=== PATIENT | male | born 1975 ===

== ENCOUNTER 2017-03-20 13:06 | Emergency (ER) | payer MEDICARE ==
[2017-03-20 13:06] VITALS: BMI 35.5
[2017-03-20 14:44] LABS: BASO # 0.1 K/uL (0.0-0.2); BASO % 0.8 % (0.0-2.0); EOS # 0.2 K/uL (0.0-0.7); EOS % 2.4 % (0.0-4.0); HEMOGLOBIN 10.8 g/dL (12.0-18.0); LYMPH # 1.5 K/uL (1.0-4.3); LYMPH % 17.7 % (20.0-40.0); MEAN CORPUSCULAR HEMOGLOBIN 27.5 pg (27.0-31.0); MEAN CORPUSCULAR HGB CONC 32.3 g/dL (33.0-37.0); MEAN PLATELET VOLUME 8.2 fL (7.2-11.7); MONO # 0.7 K/uL (0.0-0.8); MONO % 8.8 % (0.0-10.0); NEUT # 5.9 K/uL (1.8-7.0); NEUT % 70.3 % (50.0-75.0); RBC 3.93 Mil/uL (4.40-5.90); RED CELL DISTRIBUTION WIDTH 15.1 % (11.5-14.5); WHITE BLOOD COUNT 8.4 K/uL (4.8-10.8)
[2017-03-20 14:52] LABS: ALBUMIN 3.7 g/dL (3.5-5.0)
[2017-03-20 14:53] LABS: MEAN CELL VOLUME 84.9 fL (80.0-94.0)
[2017-03-20 14:55] LABS: ALT/SGPT 30 U/L (21-72); AST/SGOT 15 U/L (17-59); BLOOD UREA NITROGEN 27 mg/dL (9-20); GFR AFRICAN-AMERICAN > 60; GFR NON-AFRICAN AMERICAN 51
[2017-03-20 14:56] LABS: CALCIUM 9.3 mg/dl (8.6-10.4)
[2017-03-20 15:00] LABS: SALICYLATE < 1.0 mg/dL 1
[2017-03-20 15:02] LABS: ACETAMINOPHEN < 10.0 ug/mL (10.0-30.0)
[2017-03-20] MEDS ORDERED: Sodium Chloride 0.9% 1,000 ML IV ONE (15:12)
[2017-03-20 15:21] LABS: URINE BILIRUBIN NEGATIVE (NEGATIVE); URINE BLOOD NEGATIVE (NEGATIVE); URINE CLARITY Clear (Clear); URINE COLOR Yellow (YELLOW); URINE GLUCOSE (UA) NORMAL (Normal); URINE LEUKOCYTE ESTERASE NEG Leu/uL (Negative); URINE NITRATE NEGATIVE (NEGATIVE); URINE PROTEIN NEGATIVE (NEGATIVE); URINE UROBILINOGEN NORMAL mg/dL (0.2-1.0)
[2017-03-20] MEDS ORDERED: Sodium Chloride 0.9% 1,000 ML ONE (15:22)
[2017-03-20 15:25] LABS: BENZODIAZEPINES, UR NEGATIVE (NEGATIVE)
[2017-03-20 15:26] LABS: BARBITURATES, UR NEGATIVE (NEGATIVE)
[2017-03-20 15:29] LABS: OPIATES, UR NEGATIVE (NEGATIVE); PHENCYCLIDINE, UR NEGATIVE (NEGATIVE)
[2017-03-20 16:32] LABS: GFR AFRICAN-AMERICAN > 60; GFR NON-AFRICAN AMERICAN 55
[2017-03-20 16:33] LABS: BLOOD UREA NITROGEN 24 mg/dL (9-20); CALCIUM 8.9 mg/dl (8.6-10.4)
[2017-03-20] MEDS ORDERED: Sod Polystyrene Sulf 15 gm/60 ml Oral Susp PO ONE (16:55)
--- NOTE | 2017-03-20 16:55 | C.PDOC ---
History Of Present Illness Pt states he was thinking about cutting himself yesterday, but did not do it. Time Seen by Provider: 03/20/17 13:43 Chief Complaint (Nursing): Psychiatric Evaluation History Per: Patient Onset/Duration Of Symptoms: Days (1) Current Symptoms Are (Timing): Better Suicide/Self Injury Attempted (Context): None Modifying Factor(s): None Severity: Moderate Associated Symptoms: Depression Additional History Per: Prior Records Past Medical History Reviewed: Historical Data, Nursing Documentation, Vital Signs Vital Signs: Last Vital Signs Temp 97.9 F 03/20/17 16:57 Pulse 85 03/20/17 16:57 Resp 17 03/20/17 16:57 BP 138/76 03/20/17 16:57 Pulse Ox 99 03/20/17 16:59 - Medical History PMH: Anemia, Diabetes, HTN, Chronic Kidney Disease Other Surgeries: 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 SUBSTANCES (10/16/13) INFLUENZA VACCINATION (10/16/13) PHYSICAL THERAPY NEC (10/18/14) REPLACE GASTROSTOMY TUBE (09/16/14) VACCINATION NEC (10/16/13) Family History: States: Unknown Family Hx - Social History Hx Tobacco Use: No Hx Alcohol Use: No Hx Substance Use: No - Immunization History Hx Tetanus Toxoid Vaccination: No Hx Influenza Vaccination: No Hx Pneumococcal Vaccination: No Review Of Systems Except As Marked, All Systems Reviewed And Found Negative. Constitutional: Negative for: Fever, Weakness Cardiovascular: Negative for: Chest Pain Respiratory: Negative for: Shortness of Breath Gastrointestinal: Negative for: Vomiting, Abdominal Pain Musculoskeletal: Negative for: Neck Pain Skin: Negative for: Rash Neurological: Negative for: Weakness, Numbness, Seizures, Altered Mental Status Psych: Negative for: Psychosis Physical Exam - Physical Exam Appears: Non-toxic, No Acute Distress Skin: Normal Color, Warm, Dry Head: Atraumatic, Normacephalic Eye(s): bilateral: PERRL, EOMI Oral Mucosa: Moist Neck: Normal ROM, Supple Cardiovascular: Rhythm Regular Respiratory: Normal Breath Sounds, No Accessory Muscle Use Gastrointestinal/Abdominal: Soft, No Tenderness Extremity: Normal ROM Neurological/Psych: Oriented x3, Normal Motor, Normal Sensation ED Course And Treatment - Laboratory Results Result Diagrams: 03/20/17 14:38 08/03/17 16:14 Lab Interpretation: Abnormal Interpretation Of Abnormal: Mild hyperkalemia ECG: Interpreted By Me, Viewed By Me ECG Rhythm: Sinus Rhythm ECG Interpretation: No Acute Changes Rate From EC O2 Sat by Pulse Oximetry: 99 Pulse Ox Interpretation: Normal Progress Note: Pt was evaluated by the transit worker who d/w Dr. Del Cid. They psychiatrically cleared pt for discharge home. I wanted pt to stay for observation in order to treat his hyperkalemia, however he is refusing to stay any longer and wants to leave AMA even after explaining to him that a high potassium level is dangerous and can lead to . Reassessment Condition: Improved Against Medical Advice - AMA Patient Left Against Medical Advice: The patient declines admission to the hospital and wishes to leave the Emergency Department. This action is against my medical advice. This decision was made with informed refusal. The patient was told that admission to the hospital is necessary. Explanation of the reasons why were discussed. The risks of leaving were explained to the patient and include, but are not limited to, worsening of known or currently unknown conditions, permanent disability and from undiagnosed or untreated conditions. The patient has the capacity to make this informed decision and understands my explanation of the current medical problem and risks of leaving. The patient voluntarily accepts these risks and signed an AMA form documenting our conversation. The patient was given the opportunity to ask questions and reconsider. The patient was encouraged to return to the Emergency Department at any time for further care. Disposition Counseled Patient/Family Regarding: Studies Performed, Diagnosis, Need For Followup - Disposition Disposition: HOME/ ROUTINE Disposition Time: 17:04 Condition: FAIR Additional Instructions: Follow up with your doctor as soon as possible. Return to the ER if you change your mind or if you develop suicidal or homicidal thoughts, weakness, worsening of symptoms or if you have any other concerns. Instructions: Hyperkalemia (ED), Depression (ED), Against Medical Advice (ED) Forms: [employer] ([place]) - Clinical Impression Clinical Impression: Depression, Hyperkalemia, Left against medical advice
[2017-03-20 16:58] VITALS: BP 138/76; PULSE 85; RESP 17; TEMP 97.9
[2017-03-20 16:59] VITALS: O2SAT 99
[2017-03-20] MEDS ORDERED: Sod Polystyrene Sulf 15 gm/60 ml Oral Susp ONE (17:08)
--- NOTE | 2017-03-21 12:57 | CARD ---
APPROVED REPORT EKG Measurement Heart [id number] <Conclusion> Normal sinus rhythm Normal ECG
== END 2017-03-20 17:16 | disposition left against medical advice (07) ==
LOC: C.ER 13:06
DX: F32.9 Major depressive disorder, single episode, unspecified (principal); E87.5 Hyperkalemia
CPT/HCPCS: 36415; 80048; 80053; 81001; 85025; 93005; 96360; 99285; G0480; J7040

== ENCOUNTER 2018-04-17 07:09 | Emergency (ER) | payer MEDICARE ==
[2018-04-17 07:09] VITALS: BMI 35.5
[2018-04-17 09:01] LABS: BASO # 0.2 K/uL (0.0-0.2); BASO % 1.5 % (0.0-2.0); EOS # 0.2 K/uL (0.0-0.7); EOS % 2.1 % (0.0-4.0); HEMOGLOBIN 9.2 g/dL (12.0-18.0); LYMPH # 1.3 K/uL (1.0-4.3); LYMPH % 12.5 % (20.0-40.0); MEAN CORPUSCULAR HEMOGLOBIN 26.8 pg (27.0-31.0); MEAN CORPUSCULAR HGB CONC 32.7 g/dL (33.0-37.0); MEAN PLATELET VOLUME 7.5 fL (7.2-11.7); MONO # 1.1 K/uL (0.0-0.8); MONO % 10.2 % (0.0-10.0); NEUT # 7.7 K/uL (1.8-7.0); NEUT % 73.7 % (50.0-75.0); NRBC % 0.1 % (0.0-2.0); RBC 3.43 Mil/uL (4.40-5.90); WHITE BLOOD COUNT 10.4 K/uL (4.8-10.8)
[2018-04-17 09:05] LABS: MEAN CELL VOLUME 82.1 fL (80.0-94.0)
--- NOTE | 2018-04-17 09:14 | RAD ---
HISTORY: COMPARISON: 01/31/2016. TECHNIQUE: Chest PA and lateral FINDINGS: LINES AND TUBES: None. LUNG AND PLEURA: The lungs are well inflated and clear. No pleural effusion or pneumothorax. HEART AND MEDIASTINUM: The heart is not enlarged. The hilar and mediastinal contours are within normal limits. SKELETAL STRUCTURES: The bony structures are within normal limits for the patient's age. VISUALIZED UPPER ABDOMEN: Normal. OTHER FINDINGS: None. IMPRESSION: No active pulmonary disease.
[2018-04-17 09:21] LABS: ALBUMIN 4.4 g/dL (3.5-5.0); ALT/SGPT 39 U/L (21-72); AST/SGOT 29 U/L (17-59); BLOOD UREA NITROGEN 58 mg/dL (9-20); CALCIUM 10.7 mg/dl (8.6-10.4); GFR NON-AFRICAN AMERICAN 31; LIPASE 318 U/L (23-300)
[2018-04-17 09:58] VITALS: RESP 18
--- NOTE | 2018-04-17 10:01 | C.PDOC ---
History Of Present Illness 43-year-old nale, PMHx includes mouth cancer (s/p oral revision surgery 2011), presents to the emergency department with complaints of throat pain x2 days. Patient states he is unable to eat or drink anything, and also notes associated non-bloody/non-bilious vomiting. Patient denies fever, neck pain, dizziness, chest pain or any other associated symptoms. No other complaints at this time. Time Seen by Provider: 04/17/18 07:35 Chief Complaint (Nursing): ENT Problem History Per: Patient History/Exam Limitations: no limitations Onset/Duration Of Symptoms: Days Current Symptoms Are (Timing): Still Present Past Medical History Reviewed: Historical Data, Nursing Documentation, Vital Signs Vital Signs: Last Vital Signs Temp 98 F 04/17/18 13:12 Pulse 108 H 04/17/18 13:12 Resp 18 04/17/18 13:12 BP 150/90 04/17/18 13:12 Pulse Ox 100 04/17/18 13:12 - Medical History PMH: Anemia, Diabetes, HTN, Chronic Kidney Disease - [facility] Procedures ENTERAL INFUSION OF CONCENTRATED NUT. SUBSTANCES (10/16/13) INFLUENZA VACCINATION (10/16/13) PHYSICAL THERAPY NEC (10/18/14) REPLACE GASTROSTOMY TUBE (09/16/14) VACCINATION NEC (10/16/13) Family History: States: Unknown Family Hx - Social History Hx Tobacco Use: No Hx Alcohol Use: No Hx Substance Use: No - Immunization History Hx Tetanus Toxoid Vaccination: No Hx Influenza Vaccination: No Hx Pneumococcal Vaccination: No Review Of Systems Constitutional: Negative for: Fever, Chills ENT: Positive for: Throat Pain Cardiovascular: Negative for: Chest Pain, Palpitations Respiratory: Negative for: Shortness of Breath Gastrointestinal: Positive for: Vomiting. Negative for: Nausea, Abdominal Pain Physical Exam - Physical Exam Appears: Non-toxic, No Acute Distress Skin: Normal Color, Warm, Dry, No Rash Head: Atraumatic, Normacephalic Eye(s): bilateral: Normal Inspection Nose: Normal Oral Mucosa: Moist Lips: Other (s/p oral revision surgery, wound graft intact. oropharynxdry. Mouth :no gross abscess, poor dentition, raw appearing hard and soft palate.) Neck: Normal ROM Chest: Symmetrical Cardiovascular: Rhythm Regular, No Murmur Respiratory: Normal Breath Sounds, No Accessory Muscle Use Gastrointestinal/Abdominal: Soft, No Tenderness Extremity: Normal ROM, No Deformity Neurological/Psych: Oriented x3, Normal Speech ED Course And Treatment - Laboratory Results Result Diagrams: 04/17/18 08:58 04/17/18 08:58 ECG: Interpreted By Me, Viewed By Me ECG Rhythm: Sinus Bradycardia ECG Interpretation: No Acute Changes Rate From EC O2 Sat by Pulse Oximetry: 97 Pulse Ox Interpretation: Normal (RA) Against Medical Advice - AMA Patient Left Against Medical Advice: The patient declines admission to the hospital and wishes to leave the Emergency Department. This action is against my medical advice. This decision was made with informed refusal. The patient was told that admission to the hospital is necessary. Explanation of the reasons why were discussed. The risks of leaving were explained to the patient and include, but are not limited to, worsening of known or currently unknown conditions, permanent disability and from undiagnosed or untreated conditions. The patient has the capacity to make this informed decision and understands my explanation of the current medical problem and risks of leaving. The patient voluntarily accepts these risks and signed an AMA form documenting our conversation. The patient was given the opportunity to ask questions and reconsider. The patient was encouraged to return to the Emergency Department at any time for further care. Medical Decision Making Medical Decision Making: Plan: * CT neck * EKG * Bloodwork * Chest X-Ray * Morphine, Toradol * CT neck * Reassess and Disposition 1259 pm - patient has not informed me he does not wish to stay in hospital and will sign out ama 1700 - discussed with patient pmd and he aware patient will s/o ama and was seen today inED Disposition Counseled Patient/Family Regarding: Studies Performed, Diagnosis - Disposition Referrals: Konstantin Anderson MD [Staff Provider] - Disposition: AGAINST MEDICAL ADVICE Disposition Time: 12:50 Condition: STABLE Forms: [employer] (Kiswahili) - Clinical Impression Clinical Impression: Acute kidney injury, Tachycardia, Throat pain - Scribe Statement The provider has reviewed the documentation as recorded by the Rob Graham Provider Attestation: All medical record entries made by the Rob were at my direction and personally dictated by me. I have reviewed the chart and agree that the record accurately reflects my personal performance of the history, physical exam, medical decision making, and the department course for this patient. I have also personally directed, reviewed, and agree with the discharge instructions and disposition.
[2018-04-17] MEDS ORDERED: Morphine 4 MG/ML VIAL IV STA (10:26)
[2018-04-17 11:06] LABS: SQUAMOUS EPITHIAL < 1 /hpf (0-5); URINE BILIRUBIN NEGATIVE (NEGATIVE); URINE BLOOD 1+ (NEGATIVE); URINE CLARITY Clear (Clear); URINE COLOR Yellow (YELLOW); URINE GLUCOSE (UA) NORMAL (Normal); URINE LEUKOCYTE ESTERASE NEG Leu/uL (Negative); URINE PROTEIN 1+ mg/dL (NEGATIVE); URINE UROBILINOGEN NORMAL mg/dL (0.2-1.0)
--- NOTE | 2018-04-17 11:09 | RAD ---
Date of service: 04/17/2018 PROCEDURE: X-ray soft tissue neck HISTORY: pain COMPARISON: Not available TECHNIQUE: AP and lateral radiographs of the cervical soft tissues are obtained FINDINGS: The tracheal air column is roughly midline. There are numerous surgical clips in the left submandibular region. Patient is status post internal fixation for mandibular fracture. There is no radiopaque foreign body identified within the airway. The epiglottis is normal in width. There is no retropharyngeal soft tissue swelling. There is no evidence of tonsillar enlargement. IMPRESSION: Unremarkable.
[2018-04-17 13:30] VITALS: BP 150/90; PULSE 108; TEMP 98
[2018-04-17 18:09] VITALS: O2SAT 97
--- NOTE | 2018-04-21 22:31 | CARD ---
APPROVED REPORT Date of service: 04/17/2018 EKG Measurement Heart [id number] <Conclusion> Sinus tachycardia Moderate voltage criteria for LVH, may be normal variant Borderline ECG
== END 2018-04-17 13:20 | disposition left against medical advice (07) ==
LOC: C.ER 07:09 → C.9E 10:36 → UNDOADMIN 10:36 → C.5S 12:15 → C.9E 12:15 → C.ER 13:20
DX: N17.9 Acute kidney failure, unspecified (principal); R00.0 Tachycardia, unspecified; R07.0 Pain in throat
CPT/HCPCS: 70360; 71046; 80053; 81001; 83690; 84484; 85025; 87040; 87086; 93005; 96374; 96375; 99285; J1885; J2270

== ENCOUNTER 2018-08-20 14:03 | Outpatient (CLI) | payer MEDICARE | END 2018-08-20 14:04 | disposition home or self-care (01) | LOC: C.LAB 14:03 | DX: N40.0 Benign prostatic hyperplasia without lower urinary tract symptoms (principal) ==

== ENCOUNTER 2018-10-19 15:09 | Inpatient (IN) | payer MEDICARE, MEDICAID ==
[2018-10-19 15:10] VITALS: BMI 35.5
[2018-10-19] MEDS ORDERED: Sodium Chloride 0.9% 1,000 ML IV ONE ×2 (16:31→17:49)
[2018-10-19 16:46] LABS: BASO % 0.3 % (0.0-2.0); LYMPH # 1.2 K/uL (1.0-4.3); LYMPH % 6.4 % (20.0-40.0); MEAN CELL VOLUME 81.5 fL (80.0-94.0); MEAN CORPUSCULAR HGB CONC 30.7 g/dL (33.0-37.0); MEAN PLATELET VOLUME 9.2 fL (7.2-11.7); MONO # 1.5 K/uL (0.0-0.8); MONO % 8.3 % (0.0-10.0); NEUT # 15.4 K/uL (1.8-7.0); PLATELET COUNT 245 K/uL (130-400); RBC 3.77 Mil/uL (4.40-5.90); RED CELL DISTRIBUTION WIDTH 22.8 % (11.5-14.5); WHITE BLOOD COUNT 18.1 K/uL (4.8-10.8)
[2018-10-19 16:51] LABS: HEMOGLOBIN 9.4 g/dL (12.0-18.0)
[2018-10-19 17:01] LABS: ALB/GLOB RATIO 1.2 (1.0-2.1); ALBUMIN 4.6 g/dL (3.5-5.0); CALCIUM 9.9 mg/dl (8.6-10.4)
--- NOTE | 2018-10-19 17:39 | RAD ---
Date of service: 10/19/2018 PROCEDURE: Radiographs of the chest and abdomen (obstructive series) HISTORY: abd pain COMPARISON: Chest x-ray performed 04/17/18 TECHNIQUE: AP radiograph of the chest, with upright and supine radiographs of the abdomen. FINDINGS: Examination limited by habitus and hypoinflation. CHEST: Heart size appears within normal limits. Patchy right lower lobe airspace opacities suspicious for pneumonia. Please note that chest x-ray has limited sensitivity for the detection of pulmonary masses. ABDOMEN AND PELVIS: Nonspecific bowel gas pattern. No definite free air. Lumbar spine fusion hardware. Degenerative changes. IMPRESSION: Patchy right lower lobe airspace opacities suspicious for pneumonia. Moderate to severe constipation. Findings discussed with Dr. Jones on 10/19/18 at 5:34 p.m.
[2018-10-19 17:48] LABS: ANISOCYTOSIS MODERATE; BANDS 39 % (0-2); HYPOCHROMIC SLIGHT; LARGE PLATELETS PRESENT; LYMPHOCYTE 7 % (20-40); METAMYELOCYTE 3 % (0-0); MONOCYTE 9 % (0-10); NEUTROPHIL 42 % (50-75); OVALOCYTES SLIGHT; PLATELET ESTIMATE NORMAL (NORMAL); TOTAL CELLS COUNTED 100
[2018-10-19] MEDS ORDERED: Azithromycin 500 MG in Sodium Chloride 0.9% 250 ML IV STA (17:49)
[2018-10-19] MEDS ORDERED: cefTRIAXone IV 1 gm in Dextros 50 ML IV ONE (17:49)
[2018-10-19 18:02] LABS: SQUAMOUS EPITHIAL 1 /hpf (0-5); URINE BACTERIA RARE (<OCC); URINE BILIRUBIN 1+ (NEGATIVE); URINE BLOOD NEGATIVE (NEGATIVE); URINE CLARITY Hazy (Clear); URINE COLOR Amber (YELLOW); URINE GLUCOSE (UA) NORMAL (Normal); URINE LEUKOCYTE ESTERASE NEG Leu/uL (Negative); URINE PROTEIN 2+ mg/dL (NEGATIVE)
--- NOTE | 2018-10-19 18:20 | RAD ---
HISTORY: ? RLL PNA COMPARISON: Chest x-ray performed 04/17/18, obstructive series performed earlier the same day. TECHNIQUE: Chest PA and lateral FINDINGS: LUNGS: Patchy right lower lobe opacity suspicious for pneumonia. PLEURA: No significant pleural effusion identified. No definite pneumothorax . CARDIOVASCULAR: Heart size appears top normal. OSSEOUS STRUCTURES: Degenerative changes. VISUALIZED UPPER ABDOMEN: Unremarkable. OTHER FINDINGS: None. IMPRESSION: Patchy right lower lobe airspace opacities suspicious for pneumonia.
[2018-10-19 18:31] LABS: VENOUS BLOOD GAS BASE EXCESS -9.9 mmol/L (0.0-2.0); VENOUS BLOOD GAS PCO2 48 mmHg (40-60); VENOUS BLOOD GAS PO2 24 mm/Hg (30-55); VENOUS BLOOD PH 7.19 (7.32-7.43)
--- NOTE | 2018-10-19 18:46 | C.PDOC ---
History Of Present Illness 43 y/o male presents to the ED, referred by Dr. Contreras for evaluation of epigastric pain. Pain is described as colicky in nature. He also complains of chronic constipation. Patient states he cannot eat food due to hx of left oral cancer with surgical resection and reconstruction. He drinks protein drinks for nutrition. Otherwise he denies any vomiting, diarrhea, dark or bloody stool, or changes in urination. Time Seen by Provider: 10/19/18 16:06 Chief Complaint (Nursing): Abdominal Pain History Per: Patient History/Exam Limitations: no limitations Onset/Duration Of Symptoms: Hrs Current Symptoms Are (Timing): Still Present Location Of Pain/Discomfort: Epigastric Quality Of Discomfort: Cramping Past Medical History Reviewed: Historical Data, Nursing Documentation, Vital Signs Vital Signs: Last Vital Signs Temp 99 F 10/19/18 15:19 Pulse 122 H 10/19/18 15:19 Resp 18 10/19/18 15:19 BP 101/68 10/19/18 15:19 Pulse Ox 95 10/19/18 15:19 - Medical History PMH: Anemia, Diabetes, HTN, Hypercholesterolemia Denies: Chronic Kidney Disease - [facility] Procedures ENTERAL INFUSION OF CONCENTRATED NUT. SUBSTANCES (10/16/13) INFLUENZA VACCINATION (10/16/13) PHYSICAL THERAPY NEC (10/18/14) REPLACE GASTROSTOMY TUBE (09/16/14) VACCINATION NEC (10/16/13) Family History: States: Unknown Family Hx - Social History Hx Tobacco Use: No Hx Alcohol Use: No Hx Substance Use: No - Immunization History Hx Tetanus Toxoid Vaccination: No Hx Influenza Vaccination: No Hx Pneumococcal Vaccination: No Review Of Systems Except As Marked, All Systems Reviewed And Found Negative. Constitutional: Negative for: Fever, Chills Cardiovascular: Negative for: Chest Pain Respiratory: Negative for: Shortness of Breath Gastrointestinal: Positive for: Abdominal Pain, Constipation. Negative for: Diarrhea, Melena, Hematochezia Genitourinary: Negative for: Dysuria, Hematuria Neurological: Negative for: Weakness, Dizziness Physical Exam - Physical Exam Appears: Non-toxic, No Acute Distress Skin: Warm, Dry Head: Atraumatic, Other (Scars and reconstruction of left lower face) Eye(s): bilateral: Normal Inspection, PERRL, EOMI Oral Mucosa: Moist Neck: Normal ROM, Supple Chest: Symmetrical Cardiovascular: Rhythm Regular, No Murmur Respiratory: No Accessory Muscle Use, No Stridor, Wheezing (Mild wheezing on the right) Gastrointestinal/Abdominal: Bowel Sounds (Tympanic in epigastrium, dull to B/L sides), No Tenderness, Distention (abdomen slightly distended), Other (obese abdomen) Back: No CVA Tenderness, No Vertebral Tenderness Extremity: Bilateral: Atraumatic, Normal Color And Temperature, Normal ROM Neurological/Psych: Oriented x3, Normal Speech ED Course And Treatment - Laboratory Results Result Diagrams: 10/19/18 16:41 10/19/18 16:41 Lab Results: pO2 24 mm/Hg (30-55) L 10/19/18 18:26 VBG pH 7.19 (7.32-7.43) L* 10/19/18 18:26 VBG pCO2 48 mmHg (40-60) 10/19/18 18:26 VBG HCO3 15.3 mmol/L 10/19/18 18:26 VBG Total CO2 19.8 mmol/L (22-28) L 10/19/18 18:26 VBG O2 Sat (Calc) 44.5 % (40-65) 10/19/18 18:26 VBG Base Excess -9.9 mmol/L (0.0-2.0) L 10/19/18 18:26 VBG Potassium 5.5 mmol/L (3.6-5.2) H 10/19/18 18:26 Sodium 140.0 mmol/l (132-148) 10/19/18 18:26 Chloride 114.0 mmol/L (98-107) H 10/19/18 18:26 Glucose 117 mg/dl (75-110) H 10/19/18 18:26 Lactate 1.9 mmol/L (0.7-2.1) 10/19/18 18:26 Crit Value Called To Sathish enciso md 10/19/18 18:26 Crit Value Called By Sathish parmar stone gluer 10/19/18 18:26 Crit Value Read Back Y 10/19/18 18:26 Blood Gas Notified Time 18310/19/18 18:26 Total Bilirubin 0.4 mg/dL (0.2-1.3) 10/19/18 16:41 AST 56 U/L (17-59) 10/19/18 16:41 ALT 23 U/L (21-72) 10/19/18 16:41 Alkaline Phosphatase 40 U/L (38-126) 10/19/18 16:41 Total Protein 8.5 g/dL (6.3-8.3) H 10/19/18 16:41 Albumin 4.6 g/dL (3.5-5.0) 10/19/18 16:41 Globulin 3.8 gm/dL (2.2-3.9) 10/19/18 16:41 Albumin/Globulin Ratio 1.2 (1.0-2.1) 10/19/18 16:41 Lipase 241 U/L (23-300) 10/19/18 16:41 Urine Color Elen (YELLOW) 10/19/18 17:47 Urine Clarity Hazy (Clear) 10/19/18 17:47 Urine pH 5.0 (5.0-8.0) 10/19/18 17:47 Ur Specific [place] 1.026 (1.003-1.030) 10/19/18 17:47 Urine Protein 2+ mg/dL (NEGATIVE) H 10/19/18 17:47 Urine Glucose (UA) Normal mg/dL (Normal) 10/19/18 17:47 Urine Ketones Trace mg/dL (NEGATIVE) 10/19/18 17:47 Urine Blood Negative (NEGATIVE) 10/19/18 17:47 Urine Nitrate Negative (NEGATIVE) 10/19/18 17:47 Urine Bilirubin 1+ (NEGATIVE) H 10/19/18 17:47 Urine Urobilinogen 2.0 mg/dL (0.2-1.0) 10/19/18 17:47 Ur Leukocyte Esterase Neg Zach/uL (Negative) 10/19/18 17:47 Urine WBC (Auto) 2 /hpf (0-5) 10/19/18 17:47 Urine RBC (Auto) 10 /hpf (0-3) H 10/19/18 17:47 Ur Squamous Epith Cells 1 /hpf (0-5) 10/19/18 17:47 Urine Bacteria Rare (<OCC) 10/19/18 17:47 Lab Interpretation: Abnormal (++ bandemia, flu neg, creat 4.9 H) O2 Sat by Pulse Oximetry: 95 (RA) Pulse Ox Interpretation: Normal - Radiology CXR: Interpreted by Me CXR Interpretation: Yes: Infiltrates (+RLL) - CT Scan/US CT A/P Other Rad Studies (CT/US): Read By Radiologist, Radiology Report Reviewed CT/US Interpretation: Impression: Dense areas of consolidation at the right lower lung. No mass lymphadenopathy or free fluid within the abdomen and pelvis. Postsurgical changes lumbosacral junction with orthopedic fixation device is present at this region. Clinical correlation advised. Reevaluation Time: 19:08 Reassessment Condition: Improved - Physician Consult Information Outcome Of Conversation: 1900: d/w Dr. Anderson- admits for Dr. Contreras- ok to admit Medical Decision Making Medical Decision Making: Impression: Abdominal pain, Constipation Plan: - Labs - Obstructive series x-ray - IV fluids - 30 mg IV Toradol - Reassess Imaging and labs reviewed. WBC elevated at 18k, with 39 bands. Added on VBG, CXR, and CT Abdomen/Pelvis. epigastric pain ? related to large bowel gas/contipation incidental RLL PNA rocephin/azithro acute on chronic renal insuff creat 4.9 H ? pre-renal- dry rehydrate and follow cmp renal consult PRN Disposition Doctor Will See Patient In The: Hospital Counseled Patient/Family Regarding: Studies Performed, Diagnosis - Disposition Disposition: HOSPITALIZED Disposition Time: 19:09 Condition: GOOD Forms: [facility] ([employer]) - Clinical Impression Clinical Impression: Abdominal colic, Cough, Acute renal insufficiency - Scribe Statement The provider has reviewed the documentation as recorded by the Rob Delacruz Provider Attestation: All medical record entries made by the Rob were at my direction and personally dictated by me. I have reviewed the chart and agree that the record accurately reflects my personal performance of the history, physical exam, medical decision making, and the department course for this patient. I have also personally directed, reviewed, and agree with the discharge instructions and disposition.
[2018-10-19] MEDS ORDERED: Albuterol-Ipratrop 3 mg / 0.5 (3 ml) UD INH STA (19:10)
[2018-10-19] MEDS ORDERED: Albuterol-Ipratrop 3 mg / 0.5 (3 ml) UD ONE (19:25)
[2018-10-19] MEDS ORDERED: Azithromycin 500mg/250ML NS 500 MG/250 ML BAG IVPB ONE (19:27)
--- NOTE | 2018-10-19 22:08 | CP.PCM.HP ---
Past Patient History - Infectious Disease Hx of Infectious Diseases: None - Past Medical History & Family History Past Medical History?: Yes - Past Social History Smoking Status: Never Smoked - CARDIAC Hx Hypercholesterolemia: Yes Hx Hypertension: Yes - PULMONARY Hx Respiratory Disorders: No - NEUROLOGICAL Hx Neurological Disorder: No - HEENT Hx HEENT Problems: No - RENAL Hx Chronic Kidney Disease: No - ENDOCRINE/METABOLIC Hx Endocrine Disorders: Yes Hx Diabetes Mellitus Type 2: Yes - HEMATOLOGICAL/ONCOLOGICAL Hx Anemia: Yes - INTEGUMENTARY Hx Dermatological Problems: Yes Other/Comment: left leg scar from the grafting to face - MUSCULOSKELETAL/RHEUMATOLOGICAL Hx Musculoskeletal Disorders: No Hx Falls: Yes - GASTROINTESTINAL Hx Gastrointestinal Disorders: Yes Hx Constipation: Yes HX Swallowing Problems: Yes Other/Comment: MOUTH CANCER - GENITOURINARY/GYNECOLOGICAL Hx Genitourinary Disorders: No - PSYCHIATRIC Hx Substance Use: No - SURGICAL HISTORY Hx Surgeries: Yes Other/Comment: skin grafting of the left side of the mouth November - ANESTHESIA Hx Anesthesia: Yes Hx Anesthesia Reactions: No Meds Allergies/Adverse Reactions: Allergies Allergy/AdvReac Type Severity Reaction Status Date / Time No Known Allergies Allergy Verified 10/19/18 15:22 Results - Vital Signs Recent Vital Signs: Last Vital Signs Temp 97.8 F 10/19/18 20:30 Pulse 117 H 10/19/18 20:30 Resp 22 10/19/18 20:30 BP 127/78 10/19/18 20:30 Pulse Ox 99 10/19/18 20:30 - Labs Result Diagrams: 10/19/18 16:41 10/19/18 16:41 Labs: Laboratory Results - last 24 hr 10/19/18 10/19/18 10/19/18 16:41 16:41 17:47 WBC 18.1 H D RBC 3.77 L Hgb 9.4 L Hct 30.8 L MCV 81.5 MCH 25.0 L MCHC 30.7 L RDW 22.8 H Plt Count 245 D MPV 9.2 Neut % (Auto) 85.0 H Lymph % (Auto) 6.4 L [place] % (Auto) 8.3 Eos % (Auto) 0.0 Baso % (Auto) 0.3 Neut # (Auto) 15.4 H Lymph # (Auto) 1.2 [place] # (Auto) 1.5 H Eos # (Auto) 0.0 Baso # (Auto) 0.0 Neutrophils % (Manual) 42 L Band Neutrophils % 39 H* Lymphocytes % (Manual) 7 L Monocytes % (Manual) 9 Metamyelocytes % 3 H Platelet Estimate Normal Large Platelets Present Hypochromasia (manual) Slight Anisocytosis (manual) Moderate Ovalocytes Slight pO2 VBG pH VBG pCO2 VBG HCO3 VBG Total CO2 VBG O2 Sat (Calc) VBG Base Excess VBG Potassium Glucose Lactate Crit Value Called To Crit Value Called By Crit Value Read Back Blood Gas Notified Time Sodium 140 Potassium 5.6 H Chloride 113 H Carbon Dioxide 16 L Anion Gap 17 BUN 48 H Creatinine 4.9 H Est GFR ( Amer) 16 Est GFR (Non-Af Amer) 13 POC Glucose (mg/dL) Random Glucose 116 H Calcium 9.9 Total Bilirubin 0.4 AST 56 ALT 23 Alkaline Phosphatase 40 Total Protein 8.5 H Albumin 4.6 Globulin 3.8 Albumin/Globulin Ratio 1.2 Lipase 241 Venous Blood Potassium Urine Color Elen Urine Clarity Hazy Urine pH 5.0 Ur Specific [place] 1.026 Urine Protein 2+ H Urine Glucose (UA) Normal Urine Ketones Trace Urine Blood Negative Urine Nitrate Negative Urine Bilirubin 1+ H Urine Urobilinogen 2.0 Ur Leukocyte Esterase Neg Urine WBC (Auto) 2 Urine RBC (Auto) 10 H Ur Squamous Epith Cells 1 Urine Bacteria Rare Influenza Typ A,B (EIA) 10/19/18 10/19/18 10/19/18 18:26 18:29 21:07 WBC RBC Hgb Hct MCV MCH MCHC RDW Plt Count MPV Neut % (Auto) Lymph % (Auto) [place] % (Auto) Eos % (Auto) Baso % (Auto) Neut # (Auto) Lymph # (Auto) [place] # (Auto) Eos # (Auto) Baso # (Auto) Neutrophils % (Manual) Band Neutrophils % Lymphocytes % (Manual) Monocytes % (Manual) Metamyelocytes % Platelet Estimate Large Platelets Hypochromasia (manual) Anisocytosis (manual) Ovalocytes pO2 24 L VBG pH 7.19 L* VBG pCO2 48 VBG HCO3 15.3 VBG Total CO2 19.8 L VBG O2 Sat (Calc) 44.5 VBG Base Excess -9.9 L VBG Potassium 5.5 H Glucose 117 H Lactate 1.9 Crit Value Called To Sathish enciso md Crit Value Called By Sathish parmar supervisor machine setter Crit Value Read Back Y Blood Gas Notified Time 1832 Sodium 140.0 Potassium Chloride 114.0 H Carbon Dioxide Anion Gap BUN Creatinine Est GFR ( Amer) Est GFR (Non-Af Amer) POC Glucose (mg/dL) 213 H Random Glucose Calcium Total Bilirubin AST ALT Alkaline Phosphatase Total Protein Albumin Globulin Albumin/Globulin Ratio Lipase Venous Blood Potassium 5.5 H Urine Color Urine Clarity Urine pH Ur Specific [place] Urine Protein Urine Glucose (UA) Urine Ketones Urine Blood Urine Nitrate Urine Bilirubin Urine Urobilinogen Ur Leukocyte Esterase Urine WBC (Auto) Urine RBC (Auto) Ur Squamous Epith Cells Urine Bacteria Influenza Typ A,B (EIA) Negative for flu a/b
[2018-10-19] MEDS: (Novolog) Insulin Aspart, Recombinant 100 u/ml 10 ml vial SC SCH (22:49)
[2018-10-20 00:25] VITALS: RESP 20
[2018-10-20] MEDS: Albuterol-Ipratrop 3 mg / 0.5 (3 ml) UD INH SCH ×4 (03:21→19:40)
[2018-10-20] MEDS: Pantoprazole 40 mg Susp UD PO SCH (05:34)
[2018-10-20] MEDS ORDERED: COLESEVELAM HCL 3.75 GM PO SCH (10:00)
[2018-10-20] MEDS ORDERED: CHLORZOXAZONE 750 MG PO SCH (10:00)
[2018-10-20] MEDS ORDERED: Cholestyramine 4 gm/Pkt UD PO SCH (10:00)
[2018-10-20] MEDS ORDERED: Enoxaparin 40 mg Syringe SC SCH (10:00)
[2018-10-20] MEDS: (Novolog) Insulin Aspart, Recombinant 100 u/ml 10 ml vial SC SCH ×4 (10:13→22:08)
[2018-10-20] MEDS: Sodium Chloride 0.9% 1,000 ML IV SCH ×3 (10:24→22:23)
--- NOTE | 2018-10-20 11:13 | CT ---
Date of service: 10/19/2018 PROCEDURE: CT Abdomen and Pelvis without intravenous contrast HISTORY: epigastric colic, leukocytosis, h/o mouth CA COMPARISON: 06/26/2016 TECHNIQUE: Without contrast.. Contrast dose: 0 Radiation dose: Total exam DLP = 1258.62 mGy-cm. This CT exam was performed using one or more of the following dose reduction techniques: Automated exposure control, adjustment of the mA and/or kV according to patient size, and/or use of iterative reconstruction technique. FINDINGS: LOWER THORAX: Lars consolidation right lower lobe and right middle lobe. Innumerable ill-defined nodules in right lower lobe and in left lower lobe. Findings suspicious for multifocal pneumonia. Less likely neoplastic. No pleural effusion. LIVER: Unremarkable. No gross lesion or ductal dilatation. GALLBLADDER AND BILE DUCTS: Unremarkable. PANCREAS: Unremarkable. No gross lesion or ductal dilatation. SPLEEN: Unremarkable. ADRENALS: Unremarkable. No mass. KIDNEYS AND URETERS: Unremarkable. No hydronephrosis. No solid mass. VASCULATURE: Unremarkable. No aortic aneurysm. No aortic atherosclerotic calcification or mural plaque present. BOWEL: Unremarkable. No obstruction. No gross mural thickening. APPENDIX: Not identified. No secondary findings to suggest acute appendicitis. PERITONEUM: Unremarkable. No free fluid. No free air. LYMPH NODES: Unremarkable. No enlarged lymph nodes. BLADDER: Nondistended REPRODUCTIVE: Normal prostate BONES: No acute fracture. Status post posterior fixation at L5-S1. OTHER FINDINGS: None. IMPRESSION: Probable bilateral multi lobar pneumonia, right greater than left. Less likely neoplastic. No significant intra-abdominal abnormality. The preliminary findings for this examination were reported by [facility] at 6:43 p.m. on 10/19/2018. There is concurrence of this report with the preliminary findings.
[2018-10-20 11:24] LABS: BASO % 0.1 % (0.0-2.0); EOS % 0.1 % (0.0-4.0); HEMOGLOBIN 8.2 g/dL (12.0-18.0); LYMPH # 1.3 K/uL (1.0-4.3); LYMPH % 5.4 % (20.0-40.0); MEAN CELL VOLUME 81.5 fL (80.0-94.0); MEAN CORPUSCULAR HEMOGLOBIN 25.2 pg (27.0-31.0); MEAN CORPUSCULAR HGB CONC 30.9 g/dL (33.0-37.0); MEAN PLATELET VOLUME 9.1 fL (7.2-11.7); MONO # 1.8 K/uL (0.0-0.8); MONO % 7.3 % (0.0-10.0); NEUT # 21.4 K/uL (1.8-7.0); NEUT % 87.1 % (50.0-75.0); PLATELET COUNT 232 K/uL (130-400); RBC 3.24 Mil/uL (4.40-5.90); RED CELL DISTRIBUTION WIDTH 23.6 % (11.5-14.5); WHITE BLOOD COUNT 24.6 K/uL (4.8-10.8)
[2018-10-20 11:38] LABS: CALCIUM 8.8 mg/dl (8.6-10.4)
[2018-10-20 12:33] LABS: ANISOCYTOSIS MODERATE; BANDS 40 % (0-2); LYMPHOCYTE 4 % (20-40); METAMYELOCYTE 3 % (0-0); MONOCYTE 7 % (0-10); NEUTROPHIL 46 % (50-75); PLATELET ESTIMATE NORMAL (NORMAL); TOTAL CELLS COUNTED 100
[2018-10-20 12:35] LABS: HYPOCHROMIC SLIGHT; LARGE PLATELETS PRESENT; TOXIC GRANULATION PRESENT
--- NOTE | 2018-10-20 14:49 | CP.PCM.CON ---
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 States that he went to bed on Friday evening with slight RUQ abdominal pain and awoke Friday morning with significant RUQ and epigastric cramping/stabbing pain. He did not take any medication to alleviate symptoms and presented to the ED as pain persists. In the ED, patient had blood work revealing leukocytosis, LORI and a CT abdomen/pelvis showed multifocal pneumonia. Presently, the patient states pain has improved. At home, the patient has not been able to tolerate anything but pureed food and shakes due to his prior oral surgery. Admits that he eats 3 meals daily and believes he is getting adequate nutrition. Denies any nausea, vomiting, dysphagia, odynphagia. Does note weight loss in the last 3 months despite usual intake. Admits to constipation. No rectal bleeding noted. 12 system ROS performed and negative except where stated PMHx: See HPI PSHx: PEG, oral cancer surgery requiring glossectomy/resection of jaw, tracheostomy FHx: Mother - Diabetes Social: Denies tobacco, EtOH or illicit drug use Endo: No prior endoscopic evaluations Past Patient History - Infectious Disease Hx of Infectious Diseases: None - Past Medical History & Family History Past Medical History?: Yes - Past Social History Smoking Status: Never Smoked - CARDIAC Hx Hypercholesterolemia: Yes Hx Hypertension: Yes - PULMONARY Hx Respiratory Disorders: No - NEUROLOGICAL Hx Neurological Disorder: No - HEENT Hx HEENT Problems: No - RENAL Hx Chronic Kidney Disease: No - ENDOCRINE/METABOLIC Hx Endocrine Disorders: Yes Hx Diabetes Mellitus Type 2: Yes - HEMATOLOGICAL/ONCOLOGICAL Hx Anemia: Yes - INTEGUMENTARY Hx Dermatological Problems: Yes Other/Comment: left leg scar from the grafting to face - MUSCULOSKELETAL/RHEUMATOLOGICAL Hx Musculoskeletal Disorders: No Hx Falls: Yes - GASTROINTESTINAL Hx Gastrointestinal Disorders: Yes Hx Constipation: Yes HX Swallowing Problems: Yes Other/Comment: MOUTH CANCER - GENITOURINARY/GYNECOLOGICAL Hx Genitourinary Disorders: No - PSYCHIATRIC Hx Substance Use: No - SURGICAL HISTORY Hx Surgeries: Yes Other/Comment: skin grafting of the left side of the mouth November - ANESTHESIA Hx Anesthesia: Yes Hx Anesthesia Reactions: No Meds Allergies/Adverse Reactions: Allergies Allergy/AdvReac Type Severity Reaction Status Date / Time No Known Allergies Allergy Verified 10/19/18 15:22 - Medications Medications: Current Medications Albuterol/Ipratropium (Duoneb 3 Mg/0.5 Mg (3 Ml) Ud) 3 ml INH RQ6 [facility] Last Admin: 10/20/18 07:30 Dose: 3 ml Amitriptyline HCl (Elavil) 50 mg PO DAILY [facility] Last Admin: 10/20/18 10:11 Dose: 50 mg Cholestyramine Resin (Questran) 4 gm PO DAILY [facility] Last Admin: 10/20/18 10:20 Dose: 4 gm Enoxaparin Sodium (Lovenox) 40 mg SC DAILY [facility] Last Admin: 10/20/18 10:12 Dose: 40 mg Fenofibrate (Tricor) 48 mg PO DAILY [facility] Last Admin: 10/20/18 10:11 Dose: 48 mg Ferrous Sulfate (Feosol) 325 mg PO DAILY [facility] Last Admin: 10/20/18 10:11 Dose: 325 mg Gabapentin (Neurontin) 800 mg PO DAILY [facility] Last Admin: 10/20/18 10:11 Dose: 800 mg Glimepiride (Amaryl) 2 mg PO DAILY [facility] Last Admin: 10/20/18 10:11 Dose: 2 mg Home Med (Carbinoxamine Maleate [Ryvent]) 6 mg PO DAILY [facility] Ceftriaxone Sodium (Rocephin Iv 1 Gm Duplex) 50 mls @ 100 mls/hr IVPB Q24H [facility]; Protocol Azithromycin 500 mg/ Sodium (Chloride) 250 mls @ 250 mls/hr IVPB Q24H [facility]; Prot ocol Sodium Chloride (Sodium Chloride 0.9%) 1,000 mls @ 100 mls/hr IV .Q10H [facility] Last Admin: 10/20/18 10:24 Dose: 100 mls/hr Influenza Virus Vaccine (Flucelvax Quad [id number] Syr) 60 mcg IM .ONCE ONE Stop: 10/21/18 10:01 Insulin Aspart (Novolog) 0 unit SC [facility]; Protocol Last Admin: 10/20/18 12:11 Dose: 1 unit Losartan Potassium (Cozaar) 50 mg PO DAILY [facility] Last Admin: 10/20/18 10:11 Dose: 50 mg Pantoprazole Sodium (Protonix Susp) 40 mg PO 0600 [facility] Last Admin: 10/20/18 05:34 Dose: 40 mg Pneumococcal Polyvalent Vaccine (Pneumovax 23 Vaccine) 0.5 ml IM .ONCE ONE Stop: 10/21/18 10:01 Rosuvastatin Calcium (Crestor) 5 mg PO HS [facility] Last Admin: 10/19/18 22:48 Dose: Not Given Sitagliptin Phosphate (Januvia) 50 mg PO DAILY [facility] Last Admin: 10/20/18 10:11 Dose: 50 mg Physical Exam - Constitutional Appears: Non-toxic, No Acute Distress Additional comments: s/p surgical resection of jaw (left), tongue - Eye Exam Eye Exam: EOMI, PERRL - ENT Exam ENT Exam: Mucous Membranes Moist - Respiratory Exam Respiratory Exam: Rales (B/L). absent: Clear to Auscultation Bilateral, Rhonchi, Wheezes - Cardiovascular Exam Cardiovascular Exam: RRR, +S1, +S2 - GI/Abdominal Exam GI & Abdominal Exam: Normal Bowel Sounds, Soft. absent: Distended, Firm, Guarding, Mass, Organomegaly, Rigid, Tenderness Additional comments: scar from prior PEG - Extremities Exam Extremities exam: Positive for: normal inspection. Negative for: pedal edema - Neurological Exam Neurological exam: Alert, Oriented x3 - Psychiatric Exam Psychiatric exam: Normal Affect, Normal Mood - Skin Skin Exam: Dry, Warm Results - Vital Signs Recent Vital Signs: Last Vital Signs Temp 97.5 F L 10/20/18 07:00 Pulse 91 H 10/20/18 07:00 Resp 20 10/20/18 07:00 BP 129/82 10/20/18 07:00 Pulse Ox 100 10/20/18 07:00 - Labs Result Diagrams: 10/20/18 11:13 10/20/18 11:13 Labs: Laboratory Results - last 24 hr 10/19/18 10/19/18 10/19/18 16:41 16:41 17:47 WBC 18.1 H D RBC 3.77 L Hgb 9.4 L Hct 30.8 L MCV 81.5 MCH 25.0 L MCHC 30.7 L RDW 22.8 H Plt Count 245 D MPV 9.2 Neut % (Auto) 85.0 H Lymph % (Auto) 6.4 L [place] % (Auto) 8.3 Eos % (Auto) 0.0 Baso % (Auto) 0.3 Neut # (Auto) 15.4 H Lymph # (Auto) 1.2 [place] # (Auto) 1.5 H Eos # (Auto) 0.0 Baso # (Auto) 0.0 Neutrophils % (Manual) 42 L Band Neutrophils % 39 H* Lymphocytes % (Manual) 7 L Monocytes % (Manual) 9 Metamyelocytes % 3 H Toxic Granulation Dohle Bodies Platelet Estimate Normal Large Platelets Present Hypochromasia (manual) Slight Anisocytosis (manual) Moderate Ovalocytes Slight pO2 VBG pH VBG pCO2 VBG HCO3 VBG Total CO2 VBG O2 Sat (Calc) VBG Base Excess VBG Potassium Glucose Lactate Crit Value Called To Crit Value Called By Crit Value Read Back Blood Gas Notified Time Sodium 140 Potassium 5.6 H Chloride 113 H Carbon Dioxide 16 L Anion Gap 17 BUN 48 H Creatinine 4.9 H Est GFR ( Amer) 16 Est GFR (Non-Af Amer) 13 POC Glucose (mg/dL) Random Glucose 116 H Calcium 9.9 Total Bilirubin 0.4 AST 56 ALT 23 Alkaline Phosphatase 40 Total Protein 8.5 H Albumin 4.6 Globulin 3.8 Albumin/Globulin Ratio 1.2 Lipase 241 Venous Blood Potassium Urine Color Elen Urine Clarity Hazy Urine pH 5.0 Ur Specific Steele 1.026 Urine Protein 2+ H Urine Glucose (UA) Normal Urine Ketones Trace Urine Blood Negative Urine Nitrate Negative Urine Bilirubin 1+ H Urine Urobilinogen 2.0 Ur Leukocyte Esterase Neg Urine WBC (Auto) 2 Urine RBC (Auto) 10 H Ur Squamous Epith Cells 1 Urine Bacteria Rare Influenza Typ A,B (EIA) 10/19/18 10/19/18 10/19/18 18:26 18:29 21:07 WBC RBC Hgb Hct MCV MCH MCHC RDW Plt Count MPV Neut % (Auto) Lymph % (Auto) [place] % (Auto) Eos % (Auto) Baso % (Auto) Neut # (Auto) Lymph # (Auto) [place] # (Auto) Eos # (Auto) Baso # (Auto) Neutrophils % (Manual) Band Neutrophils % Lymphocytes % (Manual) Monocytes % (Manual) Metamyelocytes % Toxic Granulation Dohle Bodies Platelet Estimate Large Platelets Hypochromasia (manual) Anisocytosis (manual) Ovalocytes pO2 24 L VBG pH 7.19 L* VBG pCO2 48 VBG HCO3 15.3 VBG Total CO2 19.8 L VBG O2 Sat (Calc) 44.5 VBG Base Excess -9.9 L VBG Potassium 5.5 H Glucose 117 H Lactate 1.9 Crit Value Called To Sathish enciso md Crit Value Called By Sathish parmar critical care rn Crit Value Read Back Y Blood Gas Notified Time 183 Sodium 140.0 Potassium Chloride 114.0 H Carbon Dioxide Anion Gap BUN Creatinine Est GFR ( Amer) Est GFR (Non-Af Amer) POC Glucose (mg/dL) 213 H Random Glucose Calcium Total Bilirubin AST ALT Alkaline Phosphatase Total Protein Albumin Globulin Albumin/Globulin Ratio Lipase Venous Blood Potassium 5.5 H Urine Color Urine Clarity Urine pH Ur Specific Steele Urine Protein Urine Glucose (UA) Urine Ketones Urine Blood Urine Nitrate Urine Bilirubin Urine Urobilinogen Ur Leukocyte Esterase Urine WBC (Auto) Urine RBC (Auto) Ur Squamous Epith Cells Urine Bacteria Influenza Typ A,B (EIA) Negative for flu a/b 10/20/18 10/20/18 10/20/18 06:58 10:59 11:13 WBC 24.6 H RBC 3.24 L Hgb 8.2 L Hct 26.4 L MCV 81.5 MCH 25.2 L MCHC 30.9 L RDW 23.6 H Plt Count 232 MPV 9.1 Neut % (Auto) 87.1 H Lymph % (Auto) 5.4 L [place] % (Auto) 7.3 Eos % (Auto) 0.1 Baso % (Auto) 0.1 Neut # (Auto) 21.4 H Lymph # (Auto) 1.3 [place] # (Auto) 1.8 H Eos # (Auto) 0.0 Baso # (Auto) 0.0 Neutrophils % (Manual) 46 L Band Neutrophils % 40 H* Lymphocytes % (Manual) 4 L Monocytes % (Manual) 7 Metamyelocytes % 3 H Toxic Granulation Present Dohle Bodies Present Platelet Estimate Normal Large Platelets Present Hypochromasia (manual) Slight Anisocytosis (manual) Moderate Ovalocytes pO2 VBG pH VBG pCO2 VBG HCO3 VBG Total CO2 VBG O2 Sat (Calc) VBG Base Excess VBG Potassium Glucose Lactate Crit Value Called To Crit Value Called By Crit Value Read Back Blood Gas Notified Time Sodium Potassium Chloride Carbon Dioxide Anion Gap BUN Creatinine Est GFR ( Amer) Est GFR (Non-Af Amer) POC Glucose (mg/dL) 198 H 165 H Random Glucose Calcium Total Bilirubin AST ALT Alkaline Phosphatase Total Protein Albumin Globulin Albumin/Globulin Ratio Lipase Venous Blood Potassium Urine Color Urine Clarity Urine pH Ur Specific Steele Urine Protein Urine Glucose (UA) Urine Ketones Urine Blood Urine Nitrate Urine Bilirubin Urine Urobilinogen Ur Leukocyte Esterase Urine WBC (Auto) Urine RBC (Auto) Ur Squamous Epith Cells Urine Bacteria Influenza Typ A,B (EIA) 10/20/18 11:13 WBC RBC Hgb Hct MCV MCH MCHC RDW Plt Count MPV Neut % (Auto) Lymph % (Auto) [place] % (Auto) Eos % (Auto) Baso % (Auto) Neut # (Auto) Lymph # (Auto) [place] # (Auto) Eos # (Auto) Baso # (Auto) Neutrophils % (Manual) Band Neutrophils % Lymphocytes % (Manual) Monocytes % (Manual) Metamyelocytes % Toxic Granulation Dohle Bodies Platelet Estimate Large Platelets Hypochromasia (manual) Anisocytosis (manual) Ovalocytes pO2 VBG pH VBG pCO2 VBG HCO3 VBG Total CO2 VBG O2 Sat (Calc) VBG Base Excess VBG Potassium Glucose Lactate Crit Value Called To Crit Value Called By Crit Value Read Back Blood Gas Notified Time Sodium 140 Potassium 4.3 Chloride 110 H Carbon Dioxide 20 L Anion Gap 14 BUN 54 H Creatinine 3.7 H Est GFR ( Amer) 22 Est GFR (Non-Af Amer) 18 POC Glucose (mg/dL) Random Glucose 160 H D Calcium 8.8 Total Bilirubin AST ALT Alkaline Phosphatase Total Protein Albumin Globulin Albumin/Globulin Ratio Lipase Venous Blood Potassium Urine Color Urine Clarity Urine pH Ur Specific Steele Urine Protein Urine Glucose (UA) Urine Ketones Urine Blood Urine Nitrate Urine Bilirubin Urine Urobilinogen Ur Leukocyte Esterase Urine WBC (Auto) Urine RBC (Auto) Ur Squamous Epith Cells Urine Bacteria Influenza Typ A,B (EIA) Assessment & Plan - Assessment and Plan (Free Text) Assessment: Patient is a 43yo male with PMHx significant for 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, diabetes mellitus, anemia, CKD who presented to the ED with one day of abdominal pain -RUQ/epigastric abdominal pain -Multifocal pneumonia -LORI -Chronic anemia -Oral cancer s/p resection and ChemoXRT in 2011 -Weight loss Plan: -Pain may be related to RLL pneumonia, noted on imaging -Continue IV antibiotics as ordered - Ceftriaxone/Azithromycin -Check abdominal U/S - R/O cholelithiasis and biliary colic as underlying cause of pain -CT scan reviewed - no obvious intraabdominal pathology -Diet as tolerated - consider calorie count to ensure adequate intake -IVF, monitor BMP -Pantoprazole 40mg PO QD - and continue as long as patient uses NSAIDs (Mobic at home) -If symptoms do not resolve consider EGD once medically optimized - Date & Time Date: 10/20/18 Time: 15:00
--- NOTE | 2018-10-20 17:37 | US ---
HISTORY: RUQ pain COMPARISON: CT abdomen and pelvis without contrast performed 10/19/18 TECHNIQUE: Sonographic evaluation of the abdomen. FINDINGS: LIVER: Measures 14.8 cm in sagittal dimension. Increased interstitial markings may reflect infection or edema. No focal hepatic mass identified. The main portal vein appears patent with normal directional flow. No intrahepatic bile duct dilatation. GALLBLADDER: No gallstones. No gallbladder wall thickening. Negative sonographic Castillo's sign as assessed by the title one reading teacher. COMMON BILE DUCT: Measures 5 mm. PANCREAS: Not well visualized. RIGHT KIDNEY: Measures 10.0 x 5.2 x 5.8cm. Cortical thinning. Echogenic renal parenchyma. No obstructing calculus or hydronephrosis identified. LEFT KIDNEY: Measures 8.5 x 4.7 x 4.3cm. Cortical thinning. Echogenic renal parenchyma. No obstructing calculus or hydronephrosis identified. SPLEEN: Measures approximately 11.3 cm. AORTA: Limited views appear unremarkable. IVC: Limited views appear unremarkable. OTHER FINDINGS: None. IMPRESSION: Echogenic liver may be seen in setting of hepatic parenchymal disease or fatty infiltration. Renal cortical thinning. Echogenic renal parenchyma. Correlate clinically for medical renal disease.
[2018-10-20] MEDS: cefTRIAXone IV 1 gm in Dextros 50 ML IVPB SCH (17:46)
--- NOTE | 2018-10-20 17:51 | CARD ---
APPROVED REPORT Date of service: 10/19/2018 EKG Measurement Heart [id number] <Conclusion> Sinus tachycardia Nonspecific T wave abnormality Abnormal ECG
[2018-10-20] MEDS: Azithromycin 500 MG in Sodium Chloride 0.9% 250 ML IVPB SCH (18:42)
--- NOTE | 2018-10-20 18:55 | CP.PCM.PN ---
Subjective - Date & Time of Evaluation Date of Evaluation: 10/20/18 Time of Evaluation: 08:00 - Subjective Subjective: clinically same Objective - Vital Signs/Intake and Output Vital Signs (last 24 hours): Temp Pulse Resp BP Pulse Ox 97.6 F 93 H 20 130/90 100 10/20/18 15:45 10/20/18 15:45 10/20/18 15:45 10/20/18 15:45 10/20/18 15:45 - Medications Medications: Current Medications Albuterol/Ipratropium (Duoneb 3 Mg/0.5 Mg (3 Ml) Ud) 3 ml INH RQ6 [facility] Last Admin: 10/20/18 15:45 Dose: Not Given Amitriptyline HCl (Elavil) 50 mg PO DAILY [facility] Last Admin: 10/20/18 10:11 Dose: 50 mg Cholestyramine Resin (Questran) 4 gm PO DAILY [facility] Last Admin: 10/20/18 10:20 Dose: 4 gm Enoxaparin Sodium (Lovenox) 30 mg SC DAILY [facility] Fenofibrate (Tricor) 48 mg PO DAILY [facility] Last Admin: 10/20/18 10:11 Dose: 48 mg Ferrous Sulfate (Feosol) 325 mg PO DAILY [facility] Last Admin: 10/20/18 10:11 Dose: 325 mg Gabapentin (Neurontin) 800 mg PO DAILY [facility] Last Admin: 10/20/18 10:11 Dose: 800 mg Glimepiride (Amaryl) 2 mg PO DAILY [facility] Last Admin: 10/20/18 10:11 Dose: 2 mg Ceftriaxone Sodium (Rocephin Iv 1 Gm Duplex) 50 mls @ 100 mls/hr IVPB Q24H [facility]; Protocol Last Admin: 10/20/18 17:46 Dose: 100 mls/hr Azithromycin 500 mg/ Sodium (Chloride) 250 mls @ 250 mls/hr IVPB Q24H [facility]; Protocol Last Admin: 10/20/18 18:42 Dose: 250 mls/hr Sodium Chloride (Sodium Chloride 0.9%) 1,000 mls @ 100 mls/hr IV .Q10H [facility] Last Admin: 10/20/18 18:43 Dose: Not Given Influenza Virus Vaccine (Flucelvax Quad [id number] Syr) 60 mcg IM .ONCE ONE Stop: 10/21/18 10:01 Insulin Aspart (Novolog) 0 unit SC [facility]; Protocol Last Admin: 10/20/18 17:46 Dose: Not Given Loratadine (Claritin) 10 mg PO DAILY [facility] Losartan Potassium (Cozaar) 50 mg PO DAILY [facility] Last Admin: 10/20/18 10:11 Dose: 50 mg Pantoprazole Sodium (Protonix Susp) 40 mg PO 0600 [facility] Last Admin: 10/20/18 05:34 Dose: 40 mg Pneumococcal Polyvalent Vaccine (Pneumovax 23 Vaccine) 0.5 ml IM .ONCE ONE Stop: 10/21/18 10:01 Polyethylene Glycol (Miralax) 17 gm PO HS [facility] Rosuvastatin Calcium (Crestor) 5 mg PO HS [facility] Last Admin: 10/19/18 22:48 Dose: Not Given Sitagliptin Phosphate (Januvia) 50 mg PO DAILY [facility] Last Admin: 10/20/18 10:11 Dose: 50 mg - Labs Labs: 10/20/18 11:13 10/20/18 11:13 - Constitutional Appears: Well - Head Exam Head Exam: ATRAUMATIC, NORMAL INSPECTION, NORMOCEPHALIC - Eye Exam Eye Exam: EOMI, Normal appearance, PERRL Pupil Exam: NORMAL ACCOMODATION, PERRL - ENT Exam ENT Exam: Mucous Membranes Moist, Normal Exam - Neck Exam Neck Exam: Full ROM, Normal Inspection. absent: Lymphadenopathy - Respiratory Exam Respiratory Exam: Decreased Breath Sounds - Cardiovascular Exam Cardiovascular Exam: REGULAR RHYTHM, +S1, +S2 - GI/Abdominal Exam GI & Abdominal Exam: Soft, Diminished Bowel Sounds - Rectal Exam Rectal Exam: Deferred Assessment and Plan - Assessment and Plan (Free Text) Plan: continue on IV antibiotics and hydration. conitnue with cozaar GI and DVT Prophylaxis. diabetic meds with insulin.
[2018-10-20] MEDS: POLYETHYLENE GLYCOL 3350 17 GM/Dose PACKET PO SCH (22:14)
[2018-10-21] MEDS: Albuterol-Ipratrop 3 mg / 0.5 (3 ml) UD INH SCH ×5 (03:02→20:06)
[2018-10-21] MEDS: Sodium Chloride 0.9% 1,000 ML IV SCH ×3 (04:00→16:57)
[2018-10-21] MEDS: Pantoprazole 40 mg Susp UD PO SCH (05:45)
[2018-10-21] MEDS: (Novolog) Insulin Aspart, Recombinant 100 u/ml 10 ml vial SC SCH ×4 (07:36→21:24)
--- NOTE | 2018-10-21 07:42 | CP.PCM.PN ---
<Philip Marshall - Last Filed: 10/21/18 08:09> Subjective - Date & Time of Evaluation Date of Evaluation: 10/21/18 Time of Evaluation: 07:00 - Subjective Subjective: PGY6 GI Fellow Progress Note Patient seen and examined bedside this morning. The patient states his abdominal pain has resolved. Denies any complaints presently. Passed stool yesterday and thus refused Miralax. States he is tolerating diet but per nursing, patient barely eating anything. 12 system ROS performed and negative except where stated Objective - Vital Signs/Intake and Output Vital Signs (last 24 hours): Temp Pulse Resp BP Pulse Ox 97.4 F L 73 20 101/63 97 10/21/18 07:25 10/21/18 07:25 10/21/18 07:25 10/21/18 07:25 10/21/18 07:25 Intake and Output: 10/21/18 10/21/18 06:59 18:59 Intake Total 1999 Balance 1999 - Medications Medications: Current Medications Albuterol/Ipratropium (Duoneb 3 Mg/0.5 Mg (3 Ml) Ud) 3 ml INH RQ6 [facility] Last Admin: 10/21/18 03:02 Dose: Not Given Amitriptyline HCl (Elavil) 50 mg PO DAILY [facility] Last Admin: 10/20/18 10:11 Dose: 50 mg Cholestyramine Resin (Questran) 4 gm PO DAILY [facility] Last Admin: 10/20/18 10:20 Dose: 4 gm Enoxaparin Sodium (Lovenox) 30 mg SC DAILY [facility] Fenofibrate (Tricor) 48 mg PO DAILY [facility] Last Admin: 10/20/18 10:11 Dose: 48 mg Ferrous Sulfate (Feosol) 325 mg PO DAILY [facility] Last Admin: 10/20/18 10:11 Dose: 325 mg Gabapentin (Neurontin) 800 mg PO DAILY [facility] Last Admin: 10/20/18 10:11 Dose: 800 mg Glimepiride (Amaryl) 2 mg PO DAILY [facility] Last Admin: 10/20/18 10:11 Dose: 2 mg Ceftriaxone Sodium (Rocephin Iv 1 Gm Duplex) 50 mls @ 100 mls/hr IVPB Q24H [facility]; Protocol Last Admin: 10/20/18 17:46 Dose: 100 mls/hr Azithromycin 500 mg/ Sodium (Chloride) 250 mls @ 250 mls/hr IVPB Q24H [facility]; Protocol Last Admin: 10/20/18 18:42 Dose: 250 mls/hr Sodium Chloride (Sodium Chloride 0.9%) 1,000 mls @ 100 mls/hr IV .Q10H [facility] Last Admin: 10/21/18 04:00 Dose: Not Given Influenza Virus Vaccine (Flucelvax Quad 6968-8253 Syr) 60 mcg IM .ONCE ONE Stop: 10/21/18 10:01 Insulin Aspart (Novolog) 0 unit SC ACHS [facility]; Protocol Last Admin: 10/21/18 07:36 Dose: Not Given Loratadine (Claritin) 10 mg PO DAILY [facility] Losartan Potassium (Cozaar) 50 mg PO DAILY [facility] Last Admin: 10/20/18 10:11 Dose: 50 mg Pantoprazole Sodium (Protonix Susp) 40 mg PO 0600 [facility] Last Admin: 10/21/18 05:45 Dose: 40 mg Pneumococcal Polyvalent Vaccine (Pneumovax 23 Vaccine) 0.5 ml IM .ONCE ONE Stop: 10/21/18 10:01 Polyethylene Glycol (Miralax) 17 gm PO [facility] Last Admin: 10/20/18 22:14 Dose: Not Given Rosuvastatin Calcium (Crestor) 5 mg PO [facility] Last Admin: 10/20/18 22:08 Dose: 5 mg Sitagliptin Phosphate (Januvia) 50 mg PO DAILY [facility] Last Admin: 10/20/18 10:11 Dose: 50 mg - Labs Labs: 10/20/18 11:13 10/20/18 11:13 - Constitutional Appears: Non-toxic, No Acute Distress, Other (facial changes 2/2 surgery from oral malignancy) - Eye Exam Eye Exam: EOMI, PERRL - ENT Exam ENT Exam: Mucous Membranes Moist - Respiratory Exam Respiratory Exam: Rales. absent: Clear to Ausculation Bilateral, Rhonchi, Wheezes - Cardiovascular Exam Cardiovascular Exam: RRR, +S1, +S2 - GI/Abdominal Exam GI & Abdominal Exam: Soft, Normal Bowel Sounds. absent: Distended, Firm, Guarding, Rigid, Tenderness, Organomegaly - Extremities Exam Extremities Exam: Normal Inspection. absent: Pedal Edema - Neurological Exam Neurological Exam: Alert, Awake, Oriented x3 - Psychiatric Exam Psychiatric exam: Normal Affect, Normal Mood - Skin Skin Exam: Dry, Warm Assessment and Plan - Assessment and Plan (Free Text) Assessment: Patient is a 43yo male with PMHx significant for 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, diabetes mellitus, anemia, CKD who presented to the ED with one day of abdominal pain -RUQ/epigastric abdominal pain -Multifocal pneumonia -LORI -Chronic anemia -Constipation -Oral cancer s/p resection and ChemoXRT in 2011 -Weight loss - suspect poor oral intake Plan: -Pain may be related to RLL pneumonia, noted on imaging -Ongoing therapy with Ceftriaxone/Azithromycin -Abdominal U/S reviewed and unremarkable, no evidence of cholelithiasis or biliary tree abnormalities -Miralax 17g PO QHS -Discontinue cholestyramine -Poor oral intake thus far, monitor percentage of tray eaten - continue with glucerna supplementation -Consider swallow evaluation to ensure patient can tolerate oral intake -Continue PPI as ordered and continue as long as patient uses NSAIDs (Mobic at home) -Monitor CBC/BMP -If symptoms do not resolve consider EGD once medically optimized <Abhijit Mckeon Y - Last Filed: 10/21/18 08:41> Objective - Vital Signs/Intake and Output Vital Signs (last 24 hours): Temp Pulse Resp BP Pulse Ox 97.4 F L 73 20 101/63 97 10/21/18 07:25 10/21/18 07:25 10/21/18 07:25 10/21/18 07:25 10/21/18 07:25 Intake and Output: 10/21/18 10/21/18 06:59 18:59 Intake Total 1999 Balance 1999 - Medications Medications: Current Medications Albuterol/Ipratropium (Duoneb 3 Mg/0.5 Mg (3 Ml) Ud) 3 ml INH RQ6 [facility] Last Admin: 10/21/18 03:02 Dose: Not Given Amitriptyline HCl (Elavil) 50 mg PO DAILY [facility] Last Admin: 10/20/18 10:11 Dose: 50 mg Cholestyramine Resin (Questran) 4 gm PO DAILY [facility] Last Admin: 10/20/18 10:20 Dose: 4 gm Enoxaparin Sodium (Lovenox) 30 mg SC DAILY [facility] Fenofibrate (Tricor) 48 mg PO DAILY [facility] Last Admin: 10/20/18 10:11 Dose: 48 mg Ferrous Sulfate (Feosol) 325 mg PO DAILY [facility] Last Admin: 10/20/18 10:11 Dose: 325 mg Gabapentin (Neurontin) 800 mg PO DAILY [facility] Last Admin: 10/20/18 10:11 Dose: 800 mg Glimepiride (Amaryl) 2 mg PO DAILY [facility] Last Admin: 10/20/18 10:11 Dose: 2 mg Ceftriaxone Sodium (Rocephin Iv 1 Gm Duplex) 50 mls @ 100 mls/hr IVPB Q24H [facility]; Protocol Last Admin: 10/20/18 17:46 Dose: 100 mls/hr Azithromycin 500 mg/ Sodium (Chloride) 250 mls @ 250 mls/hr IVPB Q24H [facility]; Protocol Last Admin: 10/20/18 18:42 Dose: 250 mls/hr Sodium Chloride (Sodium Chloride 0.9%) 1,000 mls @ 100 mls/hr IV .Q10H [facility] Last Admin: 10/21/18 04:00 Dose: Not Given Influenza Virus Vaccine (Flucelvax Quad 3062-6592 Syr) 60 mcg IM .ONCE ONE Stop: 10/21/18 10:01 Insulin Aspart (Novolog) 0 unit SC [facility]; Protocol Last Admin: 10/21/18 07:36 Dose: Not Given Loratadine (Claritin) 10 mg PO DAILY [facility] Losartan Potassium (Cozaar) 50 mg PO DAILY [facility] Last Admin: 10/20/18 10:11 Dose: 50 mg Pantoprazole Sodium (Protonix Susp) 40 mg PO 0600 [facility] Last Admin: 10/21/18 05:45 Dose: 40 mg Pneumococcal Polyvalent Vaccine (Pneumovax 23 Vaccine) 0.5 ml IM .ONCE ONE Stop: 10/21/18 10:01 Polyethylene Glycol (Miralax) 17 gm PO [facility] Last Admin: 10/20/18 22:14 Dose: Not Given Rosuvastatin Calcium (Crestor) 5 mg PO [facility] Last Admin: 10/20/18 22:08 Dose: 5 mg Sitagliptin Phosphate (Januvia) 50 mg PO DAILY [facility] Last Admin: 10/20/18 10:11 Dose: 50 mg - Labs Labs: 10/20/18 11:13 10/20/18 11:13 Attending/Attestation - Attestation I have personally seen and examined this patient.: Yes I have fully participated in the care of the patient.: Yes I have reviewed all pertinent clinical information, including history, physical exam and plan: Yes Notes (Text): 10/21/18 08:38 I have seen and examined patient with GI fellow. He is seen resting in bed comfortably, drinking Ensure shake. He reports mild RUQ abdominal pain but otherwise denies nausea, vomiting, fever/chills. Review of vitals from today are normal. Oral cancer s/p surgical resection CKD Anemia Multifocal pneumonia Abdominal pain - Diet as tolerated, would consider swallow evaluation if patient noted to have deficient caloric intake - Continue with PPI therapy - Abdominal US reviewed by me showing no significant abnormalities aside from fatty liver - Continue with antibiotic therapy - Will continue to monitor patient clinical course
[2018-10-21] MEDS ORDERED: Influenza Vaccine 60 mcg/0.5 mL SYR (4YR UP) IM ONE (10:00)
[2018-10-21] MEDS ORDERED: Pneumococcal 23-Valent Vaccine IM ONE (10:00)
[2018-10-21] MEDS: Enoxaparin 30 mg Syringe SC SCH (10:30)
--- NOTE | 2018-10-21 16:19 | CT ---
Date of service: 10/21/2018 PROCEDURE: CT Chest without contrast HISTORY: right upper chest pain COMPARISON: Plain radiographs from 10/19/[address] chest without contrast from 01/31/2016 TECHNIQUE: Contiguous axial images were obtained through the chest without intravenous contrast enhancement. Sagittal and coronal reconstructions were performed. Radiation dose: Total exam DLP = 797.0 mGy-cm. This CT exam was performed using one or more of the following dose reduction techniques: Automated exposure control, adjustment of the mA and/or kV according to patient size, and/or use of iterative reconstruction technique. FINDINGS: LUNGS: There are low lung volumes. There is subsegmental atelectasis in the left lower lobe. There are no endobronchial lesions. There are multifocal nodular opacities in the peripheral right middle lobe and more confluent airspace disease in the lateral segment the middle lobe. There is multifocal confluent airspace disease in the right lower lobe. MEDIASTINUM: Unremarkable thoracic aorta. No aneurysm. Normal sized heart. Main pulmonary artery unremarkable. No vascular congestion. No lymphadenopathy. No aortic atherosclerotic calcification. PLEURA: No pleural fluid. No pneumothorax. BONES: No fracture. No destructive lesion. UPPER ABDOMEN: Grossly unremarkable. OTHER FINDINGS: None. IMPRESSION: Findings are most compatible with multifocal pneumonia in the right lung, worse in the right lower lobe. Follow-up after medical management is recommended to ensure complete resolution.
[2018-10-21] MEDS: cefTRIAXone IV 1 gm in Dextros 50 ML IVPB SCH (16:59)
[2018-10-21] MEDS: Azithromycin 500 MG in Sodium Chloride 0.9% 250 ML IVPB SCH (17:57)
--- NOTE | 2018-10-21 18:46 | CP.PCM.CON ---
History of Present Illness - History of Present Illness History of Present Illness: 43yo male presented to the ED with one day of abdominal pain. Patient had blood work revealing leukocytosis, LORI and a CT abdomen/pelvis showed multifocal pneumonia. Referred for ID evaluation of this PMHx: 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, diabetes mellitus, anemia, CKD PSHx: PEG, oral cancer surgery requiring glossectomy/resection of jaw, tracheostomy FHx: Mother - Diabetes Social: Denies tobacco, EtOH or illicit drug use Endo: No prior endoscopic evaluations Review of Systems - Review of Systems All systems: reviewed and no additional remarkable complaints except - Constitutional Constitutional: As Per HPI - EENT Eyes: absent: As Per HPI, Blind Spots, Blurred Vision, Change in Vision, Decreased Night Vision, Diplopia, Discharge, Dry Eye, Exophthalmos, Floaters, Irritation, Itchy Eyes, Loss of Peripheral Vision, Pain, Photophobia, Requires Corrective Lenses, Sees Flashes, Spots in Vision, Tunnel Vision, Other Visual Disturbances, Loss of Vision, Other Ears: absent: As Per HPI, Decreased Hearing, Ear Discharge, Ear Pain, Tinnitus, Abnormal Hearing, Disequilibrium, Dizziness, Other Nose/Mouth/Throat: As Per HPI - Cardiovascular Cardiovascular: absent: As Per HPI, Acrocyanosis, Chest Pain, Chest Pain at Rest, Chest Pain with Activity, Claudication, Diaphoresis, Dyspnea, Dyspnea on Exertion, Edema, Irregular Heart Rhythm, Pain Radiating to Arm/Neck/Jaw, Leg Edema, Leg Ulcers, Lightheadedness, Orthopnea, Palpitations, Paroxysmal Nocturnal Dyspnea, Pedal Edema, Radiating Pain, Rapid Heart Rate, Slow Heart Rate, Syncope, Other - Respiratory Respiratory: As Per HPI - Gastrointestinal Gastrointestinal: As Per HPI - Genitourinary Genitourinary: absent: As Per HPI, Change in Urinary Stream, Difficulty Urinating, Dysuria, Flank Pain, Hematuria, Pyuria, Nocturia, Urinary Incontinence, Urinary Frequency, Urinary Hesitance, Urinary Urgency, Voiding Freq/Small Amts, Freq UTI, Hx Renal/Bladder Calculi, Hx /Renal Surgery, Bladder Distension, Other - Reproductive: Male Reproductive:Male: As Per HPI, Prepubesant, Dyspareunia, Genital Lesions, Genital Pruritis, Pelvic Pain, Sexual Dysfunction, Penile Discharge, Genital Odor, Impotence, On ED Medications, Penile Implant, Other - Musculoskeletal Musculoskeletal: absent: As Per HPI, Abnormal Gait, Arthralgias, Atrophy, Back Pain, Deformity, Joint Swelling, Limited Range of Motion, Loss of Height, Muscle Cramps, Muscle Weakness, Myalgias, Neck Pain, Numbness, Radiating Pain into Limb, Stiffness, Tingling, Other - Integumentary Integumentary: absent: As Per HPI, Acne, Alopecia, Bleeding Lesions, Change in Hair, Change in Nails, Change in Pigmentation, Changing Lesions, Dry Skin, Erythema, Furuncle, Hirsutism, Lesions, New Lesions, Non-Healing Lesions, Photosensitivity, Pruritus, Rash, Skin Pain, Skin Ulcer, Sores, Striae, Swelling, Unusual Bruising, Wounds, Jaundice, Other - Neurological Neurological: absent: As Per HPI, Abnormal Gait, Abnormal Hearing, Abnormal Movements, Abnormal Speech, Behavioral Changes, Burning Sensations, Confusion, Convulsions, Disequilibrium, Dizziness, Numbness, Focal Weakness, Frequent Falls, Headaches, Lack of Coordination, Loss of Vision, Memory Loss, Paresthesias, Radicular Pain, Restless Legs, Sensory Deficit, Syncope, Tingling, Tremor, Vertigo, Weakness, Other Visual Disturbances, Other - Psychiatric Psychiatric: absent: As Per HPI, Abnormal Sleep Pattern, Anhedonia, Anxiety, Auditory Hallucinations, Behavioral Changes, Change in Appetite, Change in Libido, Confusion, Depression, Difficulty Concentrating, Hallucinations, Homicidal Ideation, Hopelessness, Irritability, Memory Loss, Mood Swings, Panic Attacks, Paranoia, Suicidal Ideation, Visual Hallucinations, Tactile Hallucinations, Other - Hematologic/Lymphatic Hematologic: absent: Lymphadenopathy Past Patient History - Infectious Disease Hx of Infectious Diseases: None - Past Medical History & Family History Past Medical History?: Yes - Past Social History Smoking Status: Never Smoked - CARDIAC Hx Hypercholesterolemia: Yes Hx Hypertension: Yes - PULMONARY Hx Respiratory Disorders: No - NEUROLOGICAL Hx Neurological Disorder: No - HEENT Hx HEENT Problems: No - RENAL Hx Chronic Kidney Disease: No - ENDOCRINE/METABOLIC Hx Endocrine Disorders: Yes Hx Diabetes Mellitus Type 2: Yes - HEMATOLOGICAL/ONCOLOGICAL Hx Anemia: Yes - INTEGUMENTARY Hx Dermatological Problems: Yes Other/Comment: left leg scar from the grafting to face - MUSCULOSKELETAL/RHEUMATOLOGICAL Hx Musculoskeletal Disorders: No Hx Falls: Yes - GASTROINTESTINAL Hx Gastrointestinal Disorders: Yes Hx Constipation: Yes HX Swallowing Problems: Yes Other/Comment: MOUTH CANCER - GENITOURINARY/GYNECOLOGICAL Hx Genitourinary Disorders: No - PSYCHIATRIC Hx Substance Use: No - SURGICAL HISTORY Hx Surgeries: Yes Other/Comment: skin grafting of the left side of the mouth November - ANESTHESIA Hx Anesthesia: Yes Hx Anesthesia Reactions: No Meds Allergies/Adverse Reactions: Allergies Allergy/AdvReac Type Severity Reaction Status Date / Time No Known Allergies Allergy Verified 10/19/18 15:22 - Medications Medications: Current Medications Albuterol/Ipratropium (Duoneb 3 Mg/0.5 Mg (3 Ml) Ud) 3 ml INH RQ6 [facility] Last Admin: 10/21/18 13:15 Dose: 3 ml Amitriptyline HCl (Elavil) 50 mg PO DAILY [facility] Last Admin: 10/21/18 10:30 Dose: 50 mg Cholestyramine Resin (Questran) 4 gm PO DAILY [facility] Last Admin: 10/20/18 10:20 Dose: 4 gm Enoxaparin Sodium (Lovenox) 30 mg SC DAILY [facility] Last Admin: 10/21/18 10:30 Dose: 30 mg Fenofibrate (Tricor) 48 mg PO DAILY [facility] Last Admin: 10/21/18 10:37 Dose: 48 mg Ferrous Sulfate (Feosol) 325 mg PO DAILY [facility] Last Admin: 10/21/18 10:29 Dose: Not Given Gabapentin (Neurontin) 800 mg PO DAILY [facility] Last Admin: 10/21/18 10:30 Dose: 800 mg Glimepiride (Amaryl) 2 mg PO DAILY [facility] Last Admin: 10/21/18 10:28 Dose: Not Given Ceftriaxone Sodium (Rocephin Iv 1 Gm Duplex) 50 mls @ 100 mls/hr IVPB Q24H [facility]; Protocol Last Admin: 10/21/18 16:59 Dose: 100 mls/hr Azithromycin 500 mg/ Sodium (Chloride) 250 mls @ 250 mls/hr IVPB Q24H [facility]; Protocol Last Admin: 10/21/18 17:57 Dose: 250 mls/hr Sodium Chloride (Sodium Chloride 0.9%) 1,000 mls @ 100 mls/hr IV .Q10H [facility] Last Admin: 10/21/18 16:57 Dose: 100 mls/hr Insulin Aspart (Novolog) 0 unit SC ACHS [facility]; Protocol Last Admin: 10/21/18 17:12 Dose: 1 unit Loratadine (Claritin) 10 mg PO DAILY [facility] Last Admin: 10/21/18 10:29 Dose: 10 mg Losartan Potassium (Cozaar) 50 mg PO DAILY [facility] Last Admin: 10/21/18 10:28 Dose: Not Given Pantoprazole Sodium (Protonix Susp) 40 mg PO 0600 [facility] Last Admin: 10/21/18 05:45 Dose: 40 mg Polyethylene Glycol (Miralax) 17 gm PO [facility] Last Admin: 10/20/18 22:14 Dose: Not Given Rosuvastatin Calcium (Crestor) 5 mg PO [facility] Last Admin: 10/20/18 22:08 Dose: 5 mg Sitagliptin Phosphate (Januvia) 25 mg PO DAILY [facility] Tramadol HCl (Ultram) 50 mg PO TID PRN PRN Reason: Pain, Mild (1-3) Physical Exam - Constitutional Appears: Non-toxic, No Acute Distress, Chronically Ill - Head Exam Head Exam: ATRAUMATIC - Eye Exam Eye Exam: EOMI, Normal appearance, PERRL Pupil Exam: NORMAL ACCOMODATION, PERRL - ENT Exam ENT Exam: Mucous Membranes Moist, TM's Normal Bilaterally. absent: Normal Oropharynx - Neck Exam Neck exam: Positive for: Lymphadenopathy, Normal Inspection - Respiratory Exam Respiratory Exam: Decreased Breath Sounds, Clear to Auscultation Bilateral, NORMAL BREATHING PATTERN - Cardiovascular Exam Cardiovascular Exam: REGULAR RHYTHM - GI/Abdominal Exam GI & Abdominal Exam: Normal Bowel Sounds, Soft. absent: Tenderness - Rectal Exam Rectal Exam: NORMAL INSPECTION - Exam Exam: Circumcision, NORMAL INSPECTION External exam: NORMAL EXTERNAL EXAM Speculum exam: NORMAL SPECULUM EXAM Bimanual exam: NORMAL BIMANUAL EXAM - Extremities Exam Extremities exam: Positive for: normal inspection - Back Exam Back exam: NORMAL INSPECTION - Neurological Exam Neurological exam: Alert, CN II-XII Intact, Normal Gait, Oriented x3, Reflexes Normal - Psychiatric Exam Psychiatric exam: Normal Affect, Normal Mood - Skin Skin Exam: Dry, Intact, Normal Color, Warm Results - Vital Signs Recent Vital Signs: Last Vital Signs Temp 98.4 F 10/21/18 16:00 Pulse 89 10/21/18 16:00 Resp 20 10/21/18 16:00 BP 117/77 10/21/18 16:00 Pulse Ox 99 10/21/18 16:00 - Labs Result Diagrams: 10/21/18 20:43 10/21/18 20:43 Labs: Laboratory Results - last 24 hr 10/20/18 10/20/18 10/21/18 20:55 20:55 07:02 POC Glucose (mg/dL) 82 82 94 10/21/18 10/21/18 10:55 15:53 POC Glucose (mg/dL) 138 H 169 H Assessment & Plan (1) Abdominal colic Status: Acute (2) Acute renal insufficiency Status: Acute (3) Cough Status: Acute (4) Acute kidney injury Status: Acute (5) Depression Status: Acute - Assessment and Plan (Free Text) Assessment: improving on IV rx await cultures poor progn osis
--- NOTE | 2018-10-21 18:46 | CP.PCM.CON ---
History of Present Illness - History of Present Illness History of Present Illness: 43yo male presented to the ED with one day of abdominal pain. Patient had blood work revealing leukocytosis, LORI and a CT abdomen/pelvis showed multifocal pneumonia. Referred for ID evaluation of this PMHx: 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, diabetes mellitus, anemia, CKD PSHx: PEG, oral cancer surgery requiring glossectomy/resection of jaw, tracheostomy FHx: Mother - Diabetes Social: Denies tobacco, EtOH or illicit drug use Endo: No prior endoscopic evaluations Past Patient History - Infectious Disease Hx of Infectious Diseases: None - Past Medical History & Family History Past Medical History?: Yes - Past Social History Smoking Status: Never Smoked - CARDIAC Hx Hypercholesterolemia: Yes Hx Hypertension: Yes - PULMONARY Hx Respiratory Disorders: No - NEUROLOGICAL Hx Neurological Disorder: No - HEENT Hx HEENT Problems: No - RENAL Hx Chronic Kidney Disease: No - ENDOCRINE/METABOLIC Hx Endocrine Disorders: Yes Hx Diabetes Mellitus Type 2: Yes - HEMATOLOGICAL/ONCOLOGICAL Hx Anemia: Yes - INTEGUMENTARY Hx Dermatological Problems: Yes Other/Comment: left leg scar from the grafting to face - MUSCULOSKELETAL/RHEUMATOLOGICAL Hx Musculoskeletal Disorders: No Hx Falls: Yes - GASTROINTESTINAL Hx Gastrointestinal Disorders: Yes Hx Constipation: Yes HX Swallowing Problems: Yes Other/Comment: MOUTH CANCER - GENITOURINARY/GYNECOLOGICAL Hx Genitourinary Disorders: No - PSYCHIATRIC Hx Substance Use: No - SURGICAL HISTORY Hx Surgeries: Yes Other/Comment: skin grafting of the left side of the mouth November - ANESTHESIA Hx Anesthesia: Yes Hx Anesthesia Reactions: No Meds Allergies/Adverse Reactions: Allergies Allergy/AdvReac Type Severity Reaction Status Date / Time No Known Allergies Allergy Verified 10/19/18 15:22 - Medications Medications: Current Medications Albuterol/Ipratropium (Duoneb 3 Mg/0.5 Mg (3 Ml) Ud) 3 ml INH RQ6 [facility] Last Admin: 10/20/18 19:40 Dose: 3 ml Amitriptyline HCl (Elavil) 50 mg PO DAILY [facility] Last Admin: 10/20/18 10:11 Dose: 50 mg Cholestyramine Resin (Questran) 4 gm PO DAILY [facility] Last Admin: 10/20/18 10:20 Dose: 4 gm Enoxaparin Sodium (Lovenox) 30 mg SC DAILY [facility] Fenofibrate (Tricor) 48 mg PO DAILY [facility] Last Admin: 10/20/18 10:11 Dose: 48 mg Ferrous Sulfate (Feosol) 325 mg PO DAILY [facility] Last Admin: 10/20/18 10:11 Dose: 325 mg Gabapentin (Neurontin) 800 mg PO DAILY [facility] Last Admin: 10/20/18 10:11 Dose: 800 mg Glimepiride (Amaryl) 2 mg PO DAILY [facility] Last Admin: 10/20/18 10:11 Dose: 2 mg Ceftriaxone Sodium (Rocephin Iv 1 Gm Duplex) 50 mls @ 100 mls/hr IVPB Q24H [facility] [place]; Protocol Last Admin: 10/20/18 17:46 Dose: 100 mls/hr Azithromycin 500 mg/ Sodium (Chloride) 250 mls @ 250 mls/hr IVPB Q24H [facility]; Protocol Last Admin: 10/20/18 18:42 Dose: 250 mls/hr Sodium Chloride (Sodium Chloride 0.9%) 1,000 mls @ 100 mls/hr IV .Q10H [facility] Last Admin: 10/20/18 22:23 Dose: 100 mls/hr Influenza Virus Vaccine (Flucelvax Quad [id number] Syr) 60 mcg IM .ONCE ONE Stop: 10/21/18 10:01 Insulin Aspart (Novolog) 0 unit SC [facility]; Protocol Last Admin: 10/20/18 22:08 Dose: Not Given Loratadine (Claritin) 10 mg PO DAILY [facility] Losartan Potassium (Cozaar) 50 mg PO DAILY [facility] Last Admin: 10/20/18 10:11 Dose: 50 mg Pantoprazole Sodium (Protonix Susp) 40 mg PO 0600 [facility] Last Admin: 10/20/18 05:34 Dose: 40 mg Pneumococcal Polyvalent Vaccine (Pneumovax 23 Vaccine) 0.5 ml IM .ONCE ONE Stop: 10/21/18 10:01 Polyethylene Glycol (Miralax) 17 gm PO [facility] Last Admin: 10/20/18 22:14 Dose: Not Given Rosuvastatin Calcium (Crestor) 5 mg PO [facility] Last Admin: 10/20/18 22:08 Dose: 5 mg Sitagliptin Phosphate (Januvia) 50 mg PO DAILY [facility] Last Admin: 10/20/18 10:11 Dose: 50 mg Results - Vital Signs Recent Vital Signs: Last Vital Signs Temp 97.6 F 10/20/18 15:45 Pulse 93 H 10/20/18 15:45 Resp 20 10/20/18 15:45 BP 130/90 10/20/18 15:45 Pulse Ox 100 10/20/18 15:45 - Labs Result Diagrams: 10/20/18 11:13 10/20/18 11:13 Labs: Laboratory Results - last 24 hr 10/20/18 10/20/18 10/20/18 06:58 10:59 11:13 WBC 24.6 H RBC 3.24 L Hgb 8.2 L Hct 26.4 L MCV 81.5 MCH 25.2 L MCHC 30.9 L RDW 23.6 H Plt Count 232 MPV 9.1 Neut % (Auto) 87.1 H Lymph % (Auto) 5.4 L Haskell % (Auto) 7.3 Eos % (Auto) 0.1 Baso % (Auto) 0.1 Neut # (Auto) 21.4 H Lymph # (Auto) 1.3 Haskell # (Auto) 1.8 H Eos # (Auto) 0.0 Baso # (Auto) 0.0 Neutrophils % (Manual) 46 L Band Neutrophils % 40 H* Lymphocytes % (Manual) 4 L Monocytes % (Manual) 7 Metamyelocytes % 3 H Toxic Granulation Present Dohle Bodies Present Platelet Estimate Normal Large Platelets Present Hypochromasia (manual) Slight Anisocytosis (manual) Moderate Sodium Potassium Chloride Carbon Dioxide Anion Gap BUN Creatinine Est GFR ( Amer) Est GFR (Non-Af Amer) POC Glucose (mg/dL) 198 H 165 H Random Glucose Calcium 10/20/18 10/20/18 10/20/18 11:13 16:21 20:55 WBC RBC Hgb Hct MCV MCH MCHC RDW Plt Count MPV Neut % (Auto) Lymph % (Auto) Haskell % (Auto) Eos % (Auto) Baso % (Auto) Neut # (Auto) Lymph # (Auto) Haskell # (Auto) Eos # (Auto) Baso # (Auto) Neutrophils % (Manual) Band Neutrophils % Lymphocytes % (Manual) Monocytes % (Manual) Metamyelocytes % Toxic Granulation Dohle Bodies Platelet Estimate Large Platelets Hypochromasia (manual) Anisocytosis (manual) Sodium 140 Potassium 4.3 Chloride 110 H Carbon Dioxide 20 L Anion Gap 14 BUN 54 H Creatinine 3.7 H Est GFR ( Amer) 22 Est GFR (Non-Af Amer) 18 POC Glucose (mg/dL) 92 82 Random Glucose 160 H D Calcium 8.8
--- NOTE | 2018-10-21 18:54 | CP.PCM.PN ---
Subjective - Date & Time of Evaluation Date of Evaluation: 10/21/18 Time of Evaluation: 08:00 - Subjective Subjective: clinically same Objective - Vital Signs/Intake and Output Vital Signs (last 24 hours): Temp Pulse Resp BP Pulse Ox 98.4 F 89 20 117/77 99 10/21/18 16:00 10/21/18 16:00 10/21/18 16:00 10/21/18 16:00 10/21/18 16:00 Intake and Output: 10/21/18 10/21/18 06:59 18:59 Intake Total 1999 Balance 1999 - Medications Medications: Current Medications Albuterol/Ipratropium (Duoneb 3 Mg/0.5 Mg (3 Ml) Ud) 3 ml INH RQ6 [facility] Last Admin: 10/21/18 13:15 Dose: 3 ml Amitriptyline HCl (Elavil) 50 mg PO DAILY [facility] Last Admin: 10/21/18 10:30 Dose: 50 mg Cholestyramine Resin (Questran) 4 gm PO DAILY [facility] Last Admin: 10/20/18 10:20 Dose: 4 gm Enoxaparin Sodium (Lovenox) 30 mg SC DAILY [facility] Last Admin: 10/21/18 10:30 Dose: 30 mg Fenofibrate (Tricor) 48 mg PO DAILY [facility] Last Admin: 10/21/18 10:37 Dose: 48 mg Ferrous Sulfate (Feosol) 325 mg PO DAILY [facility] Last Admin: 10/21/18 10:29 Dose: Not Given Gabapentin (Neurontin) 800 mg PO DAILY [facility] Last Admin: 10/21/18 10:30 Dose: 800 mg Glimepiride (Amaryl) 2 mg PO DAILY [facility] Last Admin: 10/21/18 10:28 Dose: Not Given Ceftriaxone Sodium (Rocephin Iv 1 Gm Duplex) 50 mls @ 100 mls/hr IVPB Q24H [facility]; Protocol Last Admin: 10/21/18 16:59 Dose: 100 mls/hr Azithromycin 500 mg/ Sodium (Chloride) 250 mls @ 250 mls/hr IVPB Q24H [facility]; Protocol Last Admin: 10/21/18 17:57 Dose: 250 mls/hr Sodium Chloride (Sodium Chloride 0.9%) 1,000 mls @ 100 mls/hr IV .Q10H [facility] Last Admin: 10/21/18 16:57 Dose: 100 mls/hr Insulin Aspart (Novolog) 0 unit SC ACHS [facility]; Protocol Last Admin: 10/21/18 17:12 Dose: 1 unit Loratadine (Claritin) 10 mg PO DAILY [facility] Last Admin: 10/21/18 10:29 Dose: 10 mg Losartan Potassium (Cozaar) 50 mg PO DAILY [facility] Last Admin: 10/21/18 10:28 Dose: Not Given Pantoprazole Sodium (Protonix Susp) 40 mg PO 0600 [facility] Last Admin: 10/21/18 05:45 Dose: 40 mg Polyethylene Glycol (Miralax) 17 gm PO HS [facility] Last Admin: 10/20/18 22:14 Dose: Not Given Rosuvastatin Calcium (Crestor) 5 mg PO HS [facility] Last Admin: 10/20/18 22:08 Dose: 5 mg Sitagliptin Phosphate (Januvia) 25 mg PO DAILY [facility] Tramadol HCl (Ultram) 50 mg PO TID PRN PRN Reason: Pain, Mild (1-3) - Labs Labs: 10/20/18 11:13 10/20/18 11:13 - Constitutional Appears: Well - Head Exam Head Exam: ATRAUMATIC, NORMAL INSPECTION, NORMOCEPHALIC - Eye Exam Eye Exam: EOMI, Normal appearance, PERRL Pupil Exam: NORMAL ACCOMODATION, PERRL - ENT Exam ENT Exam: Mucous Membranes Moist, Normal Exam - Neck Exam Neck Exam: Full ROM, Normal Inspection. absent: Lymphadenopathy - Respiratory Exam Respiratory Exam: Decreased Breath Sounds - Cardiovascular Exam Cardiovascular Exam: REGULAR RHYTHM, +S1, +S2 - GI/Abdominal Exam GI & Abdominal Exam: Soft, Diminished Bowel Sounds - Rectal Exam Rectal Exam: Deferred
[2018-10-21 20:47] LABS: BASO # 0.1 K/uL (0.0-0.2); BASO % 0.6 % (0.0-2.0); EOS # 0.2 K/uL (0.0-0.7); EOS % 1.2 % (0.0-4.0); HEMOGLOBIN 7.9 g/dL (12.0-18.0); LYMPH # 2.5 K/uL (1.0-4.3); LYMPH % 12.7 % (20.0-40.0); MEAN CELL VOLUME 81.2 fL (80.0-94.0); MEAN CORPUSCULAR HEMOGLOBIN 24.7 pg (27.0-31.0); MEAN CORPUSCULAR HGB CONC 30.4 g/dL (33.0-37.0); MEAN PLATELET VOLUME 8.5 fL (7.2-11.7); MONO # 1.1 K/uL (0.0-0.8); MONO % 5.4 % (0.0-10.0); NEUT % 80.1 % (50.0-75.0); RBC 3.22 Mil/uL (4.40-5.90); RED CELL DISTRIBUTION WIDTH 23.6 % (11.5-14.5); WHITE BLOOD COUNT 19.9 K/uL (4.8-10.8)
[2018-10-21 21:05] LABS: ALBUMIN 3.8 g/dL (3.5-5.0); CALCIUM 8.4 mg/dl (8.6-10.4)
[2018-10-21] MEDS: POLYETHYLENE GLYCOL 3350 17 GM/Dose PACKET PO SCH (21:24)
[2018-10-22] MEDS: Albuterol-Ipratrop 3 mg / 0.5 (3 ml) UD INH SCH ×4 (02:04→19:49)
[2018-10-22] MEDS: Sodium Chloride 0.9% 1,000 ML IV SCH ×5 (05:20→22:06)
[2018-10-22] MEDS: Pantoprazole 40 mg Susp UD PO SCH (05:59)
[2018-10-22] MEDS: (Novolog) Insulin Aspart, Recombinant 100 u/ml 10 ml vial SC SCH ×4 (07:50→21:57)
--- NOTE | 2018-10-22 10:00 | CP.PCM.PN ---
Subjective - Date & Time of Evaluation Date of Evaluation: 10/22/18 Time of Evaluation: 09:54 - Subjective Subjective: Patient seen and examined, resting in bed comfortably watching television. No acute events overnight, he denies abdominal pain, nausea, vomiting, fever/chills. He reports right sided discomfort with deep breathing. Tolerating liquid diet without difficulty. Review of vitals from today are normal. 12 point review of systems performed, negative aside from mentioned above. Objective - Vital Signs/Intake and Output Vital Signs (last 24 hours): Temp Pulse Resp BP Pulse Ox 97.6 F 91 H 20 106/71 98 10/22/18 08:29 10/22/18 08:29 10/22/18 08:29 10/22/18 08:29 10/22/18 08:29 Intake and Output: 10/22/18 10/22/18 06:59 18:59 Intake Total 2009 Output Total 450 Balance 1560 - Medications Medications: Current Medications Albuterol/Ipratropium (Duoneb 3 Mg/0.5 Mg (3 Ml) Ud) 3 ml INH RQ6 [facility] Last Admin: 10/22/18 02:04 Dose: Not Given Amitriptyline HCl (Elavil) 50 mg PO DAILY [facility] Last Admin: 10/21/18 10:30 Dose: 50 mg Cholestyramine Resin (Questran) 4 gm PO DAILY [facility] Last Admin: 10/20/18 10:20 Dose: 4 gm Enoxaparin Sodium (Lovenox) 30 mg SC DAILY [facility] Last Admin: 10/21/18 10:30 Dose: 30 mg Fenofibrate (Tricor) 48 mg PO DAILY [facility] Last Admin: 10/21/18 10:37 Dose: 48 mg Ferric Sodium Gluconate Complex (Ferrlecit) 125 mg IVPB DAILY [facility] Stop: 10/30/18 10:01 Ferrous Sulfate (Feosol) 325 mg PO DAILY [facility] Last Admin: 10/21/18 10:29 Dose: Not Given Gabapentin (Neurontin) 800 mg PO DAILY [facility] Last Admin: 10/21/18 10:30 Dose: 800 mg Glimepiride (Amaryl) 2 mg PO DAILY [facility] Last Admin: 10/21/18 10:28 Dose: Not Given Ceftriaxone Sodium (Rocephin Iv 1 Gm Duplex) 50 mls @ 100 mls/hr IVPB Q24H [facility]; Protocol Last Admin: 10/21/18 16:59 Dose: 100 mls/hr Azithromycin 500 mg/ Sodium (Chloride) 250 mls @ 250 mls/hr IVPB Q24H [facility]; Protocol Last Admin: 10/21/18 17:57 Dose: 250 mls/hr Sodium Chloride (Sodium Chloride 0.9%) 1,000 mls @ 100 mls/hr IV .Q10H [facility] Last Admin: 10/22/18 05:20 Dose: 100 mls/hr Insulin Aspart (Novolog) 0 unit SC ACHS [facility]; Protocol Last Admin: 10/22/18 07:50 Dose: Not Given Loratadine (Claritin) 10 mg PO DAILY [facility] Last Admin: 10/21/18 10:29 Dose: 10 mg Losartan Potassium (Cozaar) 50 mg PO DAILY [facility] Last Admin: 10/21/18 10:28 Dose: Not Given Pantoprazole Sodium (Protonix Susp) 40 mg PO 0600 [facility] Last Admin: 10/22/18 05:59 Dose: 40 mg Polyethylene Glycol (Miralax) 17 gm PO HS [facility] Last Admin: 10/21/18 21:24 Dose: Not Given Rosuvastatin Calcium (Crestor) 5 mg PO HS [facility] Last Admin: 10/21/18 21:23 Dose: 5 mg Sitagliptin Phosphate (Januvia) 25 mg PO DAILY [facility] Tramadol HCl (Ultram) 50 mg PO TID PRN PRN Reason: Pain, Mild (1-3) - Labs Labs: 10/21/18 20:43 10/21/18 20:43 - Constitutional Appears: Non-toxic, No Acute Distress - Head Exam Head Exam: NORMAL INSPECTION - Eye Exam Eye Exam: EOMI, Normal appearance - ENT Exam ENT Exam: Mucous Membranes Moist Additional comments: facial surgical scar present - Respiratory Exam Respiratory Exam: Clear to Ausculation Bilateral - Cardiovascular Exam Cardiovascular Exam: +S1, +S2 - GI/Abdominal Exam GI & Abdominal Exam: Soft, Normal Bowel Sounds Additional comments: non tender to palpation in four quadrants - Extremities Exam Extremities Exam: Normal Inspection - Skin Skin Exam: Dry, Intact, Normal Color, Warm Assessment and Plan - Assessment and Plan (Free Text) Assessment: 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 Please reconsult as necessary, thank you.
[2018-10-22] MEDS: Enoxaparin 30 mg Syringe SC SCH (10:59)
[2018-10-22] MEDS: Ferric Sodium Gluconat Complex 62.5 mg/5 ml Vial IVPB SCH (11:00)
[2018-10-22] MEDS: cefTRIAXone IV 1 gm in Dextros 50 ML IVPB SCH (16:32)
--- NOTE | 2018-10-22 16:57 | CP.PCM.PN ---
Subjective - Date & Time of Evaluation Date of Evaluation: 10/22/18 Time of Evaluation: 07:45 - Subjective Subjective: clinically same Objective - Vital Signs/Intake and Output Vital Signs (last 24 hours): Temp Pulse Resp BP Pulse Ox 97.5 F L 88 20 150/91 H 99 10/22/18 16:00 10/22/18 16:00 10/22/18 16:00 10/22/18 16:00 10/22/18 16:00 Intake and Output: 10/22/18 10/22/18 06:59 18:59 Intake Total 2009 Output Total 450 Balance 1560 - Medications Medications: Current Medications Albuterol/Ipratropium (Duoneb 3 Mg/0.5 Mg (3 Ml) Ud) 3 ml INH RQ6 [facility] Last Admin: 10/22/18 13:33 Dose: 3 ml Amitriptyline HCl (Elavil) 50 mg PO DAILY [facility] Last Admin: 10/22/18 10:59 Dose: 50 mg Cholestyramine Resin (Questran) 4 gm PO DAILY [facility] Last Admin: 10/20/18 10:20 Dose: 4 gm Enoxaparin Sodium (Lovenox) 30 mg SC DAILY [facility] Last Admin: 10/22/18 10:59 Dose: 30 mg Fenofibrate (Tricor) 48 mg PO DAILY [facility] Last Admin: 10/22/18 10:59 Dose: 48 mg Ferric Sodium Gluconate Complex (Ferrlecit) 125 mg IVPB DAILY [facility] Stop: 10/30/18 10:01 Last Admin: 10/22/18 11:00 Dose: 125 mg Ferrous Sulfate (Feosol) 325 mg PO DAILY [facility] Last Admin: 10/22/18 10:58 Dose: 325 mg Gabapentin (Neurontin) 800 mg PO DAILY [facility] Last Admin: 10/22/18 10:59 Dose: 800 mg Glimepiride (Amaryl) 2 mg PO DAILY [facility] Last Admin: 10/22/18 10:58 Dose: 2 mg Ceftriaxone Sodium (Rocephin Iv 1 Gm Duplex) 50 mls @ 100 mls/hr IVPB Q24H [facility]; Protocol Last Admin: 10/22/18 16:32 Dose: 100 mls/hr Azithromycin 500 mg/ Sodium (Chloride) 250 mls @ 250 mls/hr IVPB Q24H [facility]; Protocol Last Admin: 10/21/18 17:57 Dose: 250 mls/hr Sodium Chloride (Sodium Chloride 0.9%) 1,000 mls @ 100 mls/hr IV .Q10H [facility] Last Admin: 10/22/18 12:35 Dose: Not Given Insulin Aspart (Novolog) 0 unit SC ACHS [facility]; Protocol Last Admin: 10/22/18 16:50 Dose: Not Given Loratadine (Claritin) 10 mg PO DAILY [facility] Last Admin: 10/22/18 11:26 Dose: 10 mg Losartan Potassium (Cozaar) 50 mg PO DAILY [facility] Last Admin: 10/22/18 10:58 Dose: 50 mg Pantoprazole Sodium (Protonix Susp) 40 mg PO 0600 [facility] Last Admin: 10/22/18 05:59 Dose: 40 mg Polyethylene Glycol (Miralax) 17 gm PO HS [facility] Last Admin: 10/21/18 21:24 Dose: Not Given Rosuvastatin Calcium (Crestor) 5 mg PO HS [facility] Last Admin: 10/21/18 21:23 Dose: 5 mg Sitagliptin Phosphate (Januvia) 25 mg PO DAILY [facility] Last Admin: 10/22/18 10:58 Dose: 25 mg Tramadol HCl (Ultram) 50 mg PO TID PRN PRN Reason: Pain, Mild (1-3) - Labs Labs: 10/21/18 20:43 10/21/18 20:43
[2018-10-22] MEDS: Azithromycin 500 MG in Sodium Chloride 0.9% 250 ML IVPB SCH (17:18)
--- NOTE | 2018-10-22 19:12 | CP.PCM.PN ---
Subjective - Date & Time of Evaluation Date of Evaluation: 10/22/18 Time of Evaluation: 07:00 - Subjective Subjective: denies fever chills cough cultures neg thus far Objective - Vital Signs/Intake and Output Vital Signs (last 24 hours): Temp Pulse Resp BP Pulse Ox 97.5 F L 88 20 150/91 H 99 10/22/18 16:00 10/22/18 16:00 10/22/18 16:00 10/22/18 16:00 10/22/18 16:00 - Medications Medications: Current Medications Albuterol/Ipratropium (Duoneb 3 Mg/0.5 Mg (3 Ml) Ud) 3 ml INH RQ6 [facility] Last Admin: 10/22/18 13:33 Dose: 3 ml Amitriptyline HCl (Elavil) 50 mg PO DAILY [facility] Last Admin: 10/22/18 10:59 Dose: 50 mg Cholestyramine Resin (Questran) 4 gm PO DAILY [facility] Last Admin: 10/20/18 10:20 Dose: 4 gm Enoxaparin Sodium (Lovenox) 30 mg SC DAILY [facility] Last Admin: 10/22/18 10:59 Dose: 30 mg Fenofibrate (Tricor) 48 mg PO DAILY [facility] Last Admin: 10/22/18 10:59 Dose: 48 mg Ferric Sodium Gluconate Complex (Ferrlecit) 125 mg IVPB DAILY [facility] Stop: 10/30/18 10:01 Last Admin: 10/22/18 11:00 Dose: 125 mg Ferrous Sulfate (Feosol) 325 mg PO DAILY [facility] Last Admin: 10/22/18 10:58 Dose: 325 mg Gabapentin (Neurontin) 800 mg PO DAILY [facility] Last Admin: 10/22/18 10:59 Dose: 800 mg Glimepiride (Amaryl) 2 mg PO DAILY [facility] Last Admin: 10/22/18 10:58 Dose: 2 mg Ceftriaxone Sodium (Rocephin Iv 1 Gm Duplex) 50 mls @ 100 mls/hr IVPB Q24H [facility]; Protocol Last Admin: 10/22/18 16:32 Dose: 100 mls/hr Azithromycin 500 mg/ Sodium (Chloride) 250 mls @ 250 mls/hr IVPB Q24H [facility]; Protocol Last Admin: 10/22/18 17:18 Dose: 250 mls/hr Sodium Chloride (Sodium Chloride 0.9%) 1,000 mls @ 100 mls/hr IV .Q10H [facility] Last Admin: 10/22/18 17:18 Dose: 100 mls/hr Insulin Aspart (Novolog) 0 unit SC ACHS [facility]; Protocol Last Admin: 10/22/18 16:50 Dose: Not Given Loratadine (Claritin) 10 mg PO DAILY [facility] Last Admin: 10/22/18 11:26 Dose: 10 mg Losartan Potassium (Cozaar) 50 mg PO DAILY [facility] Last Admin: 10/22/18 10:58 Dose: 50 mg Pantoprazole Sodium (Protonix Susp) 40 mg PO 0600 [facility] Last Admin: 10/22/18 05:59 Dose: 40 mg Polyethylene Glycol (Miralax) 17 gm PO HS [facility] Last Admin: 10/21/18 21:24 Dose: Not Given Rosuvastatin Calcium (Crestor) 5 mg PO HS [facility] Last Admin: 10/21/18 21:23 Dose: 5 mg Sitagliptin Phosphate (Januvia) 25 mg PO DAILY [facility] Last Admin: 10/22/18 10:58 Dose: 25 mg Tramadol HCl (Ultram) 50 mg PO TID PRN PRN Reason: Pain, Mild (1-3) - Labs Labs: 10/21/18 20:43 10/21/18 20:43 - Constitutional Appears: Non-toxic, No Acute Distress, Chronically Ill - Head Exam Head Exam: ATRAUMATIC, NORMAL INSPECTION, NORMOCEPHALIC - Eye Exam Eye Exam: EOMI, Normal appearance, PERRL Pupil Exam: NORMAL ACCOMODATION, PERRL - ENT Exam ENT Exam: Mucous Membranes Moist, Normal External Ear Exam - Neck Exam Neck Exam: Full ROM, Normal Inspection. absent: Lymphadenopathy - Respiratory Exam Respiratory Exam: Clear to Ausculation Bilateral, NORMAL BREATHING PATTERN - Cardiovascular Exam Cardiovascular Exam: REGULAR RHYTHM, +S1, +S2. absent: Murmur - GI/Abdominal Exam GI & Abdominal Exam: Soft, Normal Bowel Sounds. absent: Tenderness - Rectal Exam Rectal Exam: Deferred - Exam Exam: NORMAL INSPECTION - Extremities Exam Extremities Exam: Full ROM, Normal Capillary Refill, Normal Inspection. absent: Joint Swelling, Pedal Edema - Back Exam Back Exam: NORMAL INSPECTION - Neurological Exam Neurological Exam: Alert, Awake, CN II-XII Intact, Normal Gait, Oriented x3 - Psychiatric Exam Psychiatric exam: Normal Affect, Normal Mood - Skin Skin Exam: Dry, Intact, Normal Color, Warm Assessment and Plan (1) Abdominal colic Status: Acute (2) Acute renal insufficiency Status: Acute (3) Cough Status: Acute (4) Acute kidney injury Status: Acute (5) Depression Status: Acute (6) Pneumonia Status: Acute - Assessment and Plan (Free Text) Assessment: IV antibiotics in progress cultures so far negative
[2018-10-22] MEDS: POLYETHYLENE GLYCOL 3350 17 GM/Dose PACKET PO SCH (21:55)
[2018-10-23] MEDS: Albuterol-Ipratrop 3 mg / 0.5 (3 ml) UD INH SCH ×4 (01:52→19:51)
[2018-10-23] MEDS: Sodium Chloride 0.9% 1,000 ML IV SCH ×2 (05:37→16:53)
[2018-10-23] MEDS: Pantoprazole 40 mg Susp UD PO SCH (05:38)
[2018-10-23 07:28] LABS: BASO # 0.1 K/uL (0.0-0.2); BASO % 0.8 % (0.0-2.0); EOS # 0.3 K/uL (0.0-0.7); EOS % 2.6 % (0.0-4.0); HEMOGLOBIN 8.8 g/dL (12.0-18.0); LYMPH # 1.4 K/uL (1.0-4.3); LYMPH % 12.3 % (20.0-40.0); MEAN CELL VOLUME 81.3 fL (80.0-94.0); MEAN CORPUSCULAR HEMOGLOBIN 25.4 pg (27.0-31.0); MEAN CORPUSCULAR HGB CONC 31.2 g/dL (33.0-37.0); MONO # 0.6 K/uL (0.0-0.8); MONO % 5.7 % (0.0-10.0); NEUT # 8.8 K/uL (1.8-7.0); NEUT % 78.6 % (50.0-75.0); NRBC % 0.1 % (0.0-2.0); RBC 3.48 Mil/uL (4.40-5.90); WHITE BLOOD COUNT 11.2 K/uL (4.8-10.8)
[2018-10-23 07:52] LABS: ALBUMIN 3.8 g/dL (3.5-5.0); ALT/SGPT 21 U/L (21-72); AST/SGOT 29 U/L (17-59); BLOOD UREA NITROGEN 26 mg/dL (9-20); CALCIUM 9.4 mg/dl (8.6-10.4); GFR NON-AFRICAN AMERICAN 34
[2018-10-23] MEDS: (Novolog) Insulin Aspart, Recombinant 100 u/ml 10 ml vial SC SCH ×4 (08:20→22:07)
[2018-10-23] MEDS ORDERED: Oxymetazoline 0.05% Nasal Spray (30 ml) NS PRN (08:42)
[2018-10-23] MEDS: Ferric Sodium Gluconat Complex 62.5 mg/5 ml Vial IVPB SCH (09:42)
[2018-10-23] MEDS: cefTRIAXone IV 1 gm in Dextros 50 ML IVPB SCH (16:52)
[2018-10-23] MEDS: Azithromycin 500 MG in Sodium Chloride 0.9% 250 ML IVPB SCH (17:45)
--- NOTE | 2018-10-23 18:36 | CP.PCM.PN ---
Subjective - Date & Time of Evaluation Date of Evaluation: 10/23/18 Time of Evaluation: 07:00 - Subjective Subjective: improving awake alert afebrile LORI better Objective - Vital Signs/Intake and Output Vital Signs (last 24 hours): Temp Pulse Resp BP Pulse Ox 98 F 88 20 160/96 H 96 10/23/18 16:00 10/23/18 18:16 10/23/18 16:00 10/23/18 18:16 10/23/18 16:00 Intake and Output: 10/23/18 10/23/18 06:59 18:59 Intake Total 2300 750 Output Total 1000 1550 Balance 1300 -800 - Medications Medications: Current Medications Albuterol/Ipratropium (Duoneb 3 Mg/0.5 Mg (3 Ml) Ud) 3 ml INH RQ6 [facility] Last Admin: 10/23/18 13:10 Dose: Not Given Amitriptyline HCl (Elavil) 50 mg PO [facility] Cholestyramine Resin (Questran) 4 gm PO DAILY [facility] Last Admin: 10/20/18 10:20 Dose: 4 gm Enoxaparin Sodium (Lovenox) 30 mg SC DAILY [facility] Last Admin: 10/22/18 10:59 Dose: 30 mg Fenofibrate (Tricor) 48 mg PO DAILY [facility] Last Admin: 10/23/18 10:28 Dose: 48 mg Ferric Sodium Gluconate Complex (Ferrlecit) 125 mg IVPB DAILY [facility] Stop: 10/30/18 10:01 Last Admin: 10/23/18 09:42 Dose: 125 mg Ferrous Sulfate (Feosol) 325 mg PO DAILY [facility] Last Admin: 10/23/18 09:42 Dose: 325 mg Gabapentin (Neurontin) 800 mg PO DAILY [facility] Last Admin: 10/23/18 09:50 Dose: 800 mg Glimepiride (Amaryl) 2 mg PO DAILY [facility] Last Admin: 10/23/18 09:42 Dose: 2 mg Ceftriaxone Sodium (Rocephin Iv 1 Gm Duplex) 50 mls @ 100 mls/hr IVPB Q24H [facility]; Protocol Last Admin: 10/23/18 16:52 Dose: 100 mls/hr Azithromycin 500 mg/ Sodium (Chloride) 250 mls @ 250 mls/hr IVPB Q24H [facility]; Protocol Last Admin: 10/23/18 17:45 Dose: 250 mls/hr Sodium Chloride (Sodium Chloride 0.9%) 1,000 mls @ 100 mls/hr IV .Q10H [facility] Last Admin: 10/23/18 16:53 Dose: 100 mls/hr Insulin Aspart (Novolog) 0 unit SC ACHS [facility]; Protocol Last Admin: 10/23/18 16:52 Dose: 1 unit Loratadine (Claritin) 10 mg PO DAILY [facility] Last Admin: 10/23/18 09:49 Dose: 10 mg Losartan Potassium (Cozaar) 50 mg PO DAILY [facility] Last Admin: 10/23/18 09:41 Dose: 50 mg Oxymetazoline HCl (Afrin 0.05%) 0 ml NS DAILY PRN PRN Reason: EPISTAXIS Pantoprazole Sodium (Protonix Susp) 40 mg PO 0600 [facility] Last Admin: 10/23/18 05:38 Dose: 40 mg Polyethylene Glycol (Miralax) 17 gm PO HS [facility] Last Admin: 10/22/18 21:55 Dose: Not Given Rosuvastatin Calcium (Crestor) 5 mg PO [facility] Last Admin: 10/22/18 21:55 Dose: 5 mg Sitagliptin Phosphate (Januvia) 25 mg PO DAILY [facility] Last Admin: 10/23/18 09:42 Dose: 25 mg Tramadol HCl (Ultram) 50 mg PO TID PRN PRN Reason: Pain, Mild (1-3) - Labs Labs: 10/23/18 07:11 10/23/18 07:11 - Constitutional Appears: Non-toxic, Chronically Ill - Head Exam Head Exam: NORMOCEPHALIC - Eye Exam Eye Exam: absent: Scleral icterus Pupil Exam: NORMAL ACCOMODATION - ENT Exam ENT Exam: Mucous Membranes Dry - Neck Exam Neck Exam: absent: Lymphadenopathy - Respiratory Exam Respiratory Exam: Decreased Breath Sounds - Cardiovascular Exam Cardiovascular Exam: REGULAR RHYTHM - GI/Abdominal Exam GI & Abdominal Exam: Distended, Soft - Rectal Exam Rectal Exam: Deferred - Exam Exam: NORMAL INSPECTION - Extremities Exam Extremities Exam: absent: Pedal Edema - Back Exam Back Exam: absent: CVA tenderness (L), CVA tenderness (R) - Neurological Exam Neurological Exam: Alert, Awake, Oriented x3 - Psychiatric Exam Psychiatric exam: Depressed - Skin Skin Exam: Dry Assessment and Plan (1) Abdominal colic Status: Acute (2) Acute renal insufficiency Status: Acute (3) Cough Status: Acute (4) Acute kidney injury Status: Acute (5) Depression Status: Acute (6) Pneumonia Status: Acute - Assessment and Plan (Free Text) Assessment: sepsis / LORI resolving cont IV rx
--- NOTE | 2018-10-23 20:29 | CP.PCM.PN ---
Subjective - Date & Time of Evaluation Date of Evaluation: 10/23/18 Time of Evaluation: 07:45 - Subjective Subjective: clinically same Objective - Vital Signs/Intake and Output Vital Signs (last 24 hours): Temp Pulse Resp BP Pulse Ox 98 F 88 20 160/96 H 96 10/23/18 16:00 10/23/18 18:16 10/23/18 16:00 10/23/18 18:16 10/23/18 16:00 Intake and Output: 10/23/18 10/24/18 18:59 06:59 Intake Total 750 Output Total 1550 Balance -800 - Medications Medications: Current Medications Albuterol/Ipratropium (Duoneb 3 Mg/0.5 Mg (3 Ml) Ud) 3 ml INH RQ6 [facility] Last Admin: 10/23/18 19:51 Dose: Not Given Amitriptyline HCl (Elavil) 50 mg PO [facility] Cholestyramine Resin (Questran) 4 gm PO DAILY [facility] Last Admin: 10/20/18 10:20 Dose: 4 gm Enoxaparin Sodium (Lovenox) 30 mg SC DAILY [facility] Last Admin: 10/22/18 10:59 Dose: 30 mg Fenofibrate (Tricor) 48 mg PO DAILY [facility] Last Admin: 10/23/18 10:28 Dose: 48 mg Ferric Sodium Gluconate Complex (Ferrlecit) 125 mg IVPB DAILY [facility] Stop: 10/30/18 10:01 Last Admin: 10/23/18 09:42 Dose: 125 mg Ferrous Sulfate (Feosol) 325 mg PO DAILY [facility] Last Admin: 10/23/18 09:42 Dose: 325 mg Gabapentin (Neurontin) 800 mg PO DAILY [facility] Last Admin: 10/23/18 09:50 Dose: 800 mg Glimepiride (Amaryl) 2 mg PO DAILY [facility] Last Admin: 10/23/18 09:42 Dose: 2 mg Ceftriaxone Sodium (Rocephin Iv 1 Gm Duplex) 50 mls @ 100 mls/hr IVPB Q24H [facility]; Protocol Last Admin: 10/23/18 16:52 Dose: 100 mls/hr Azithromycin 500 mg/ Sodium (Chloride) 250 mls @ 250 mls/hr IVPB Q24H [facility]; Protocol Last Admin: 10/23/18 17:45 Dose: 250 mls/hr Sodium Chloride (Sodium Chloride 0.9%) 1,000 mls @ 100 mls/hr IV .Q10H [facility] Last Admin: 10/23/18 16:53 Dose: 100 mls/hr Insulin Aspart (Novolog) 0 unit SC ACHS [facility]; Protocol Last Admin: 10/23/18 16:52 Dose: 1 unit Loratadine (Claritin) 10 mg PO DAILY [facility] Last Admin: 10/23/18 09:49 Dose: 10 mg Losartan Potassium (Cozaar) 50 mg PO DAILY [facility] Last Admin: 10/23/18 09:41 Dose: 50 mg Oxymetazoline HCl (Afrin 0.05%) 0 ml NS DAILY PRN PRN Reason: EPISTAXIS Pantoprazole Sodium (Protonix Susp) 40 mg PO 0600 [facility] Last Admin: 10/23/18 05:38 Dose: 40 mg Polyethylene Glycol (Miralax) 17 gm PO [facility] Last Admin: 10/22/18 21:55 Dose: Not Given Rosuvastatin Calcium (Crestor) 5 mg PO HS [facility] Last Admin: 10/22/18 21:55 Dose: 5 mg Sitagliptin Phosphate (Januvia) 25 mg PO DAILY [facility] Last Admin: 10/23/18 09:42 Dose: 25 mg Tramadol HCl (Ultram) 50 mg PO TID PRN PRN Reason: Pain, Mild (1-3) - Labs Labs: 10/23/18 07:11 10/23/18 07:11
--- NOTE | 2018-10-23 23:48 | OP ---
PROCEDURE DATE: 10/23/2018 PREOPERATIVE DIAGNOSIS: Left epistaxis. POSTOPERATIVE DIAGNOSIS: Left epistaxis. PROCEDURE: Nasal packing on the left. DESCRIPTION OF PROCEDURE: The patient was placed in a seated position. The left nostril was decongested using Afrin. Rhino Rocket was inserted in the left nostril and inflated. Bleeding was controlled. The patient tolerated the procedure well. Estevan Graff MD
[2018-10-24] MEDS: Albuterol-Ipratrop 3 mg / 0.5 (3 ml) UD INH SCH ×4 (01:12→20:16)
[2018-10-24] MEDS: Sodium Chloride 0.9% 1,000 ML IV SCH ×4 (02:00→22:22)
[2018-10-24] MEDS: Pantoprazole 40 mg Susp UD PO SCH (05:54)
[2018-10-24 07:57] LABS: CALCIUM 9.1 mg/dl (8.6-10.4)
[2018-10-24 08:00] LABS: BASO # 0.1 K/uL (0.0-0.2); BASO % 0.9 % (0.0-2.0); EOS # 0.4 K/uL (0.0-0.7); EOS % 4.1 % (0.0-4.0); HEMOGLOBIN 8.6 g/dL (12.0-18.0); LYMPH # 1.9 K/uL (1.0-4.3); LYMPH % 22.6 % (20.0-40.0); MEAN CELL VOLUME 80.2 fL (80.0-94.0); MEAN CORPUSCULAR HEMOGLOBIN 25.8 pg (27.0-31.0); MEAN CORPUSCULAR HGB CONC 32.1 g/dL (33.0-37.0); MEAN PLATELET VOLUME 8.9 fL (7.2-11.7); MONO # 0.8 K/uL (0.0-0.8); MONO % 9.1 % (0.0-10.0); NEUT # 5.4 K/uL (1.8-7.0); NEUT % 63.3 % (50.0-75.0); NRBC % 0.1 % (0.0-2.0); RBC 3.35 Mil/uL (4.40-5.90); RED CELL DISTRIBUTION WIDTH 22.8 % (11.5-14.5); WHITE BLOOD COUNT 8.6 K/uL (4.8-10.8)
[2018-10-24] MEDS: (Novolog) Insulin Aspart, Recombinant 100 u/ml 10 ml vial SC SCH ×4 (08:11→22:23)
[2018-10-24] MEDS: Ferric Sodium Gluconat Complex 62.5 mg/5 ml Vial IVPB SCH (11:16)
--- NOTE | 2018-10-24 14:48 | CP.PCM.PN ---
Subjective - Date & Time of Evaluation Date of Evaluation: 10/24/18 Time of Evaluation: 07:45 - Subjective Subjective: clinically same Objective - Vital Signs/Intake and Output Vital Signs (last 24 hours): Temp Pulse Resp BP Pulse Ox 98.0 F 93 H 20 153/84 H 98 10/24/18 07:50 10/24/18 07:50 10/24/18 07:50 10/24/18 07:50 10/24/18 07:50 Intake and Output: 10/24/18 10/24/18 06:59 18:59 Intake Total 1750 Output Total 1250 Balance 500 - Medications Medications: Current Medications Albuterol/Ipratropium (Duoneb 3 Mg/0.5 Mg (3 Ml) Ud) 3 ml INH RQ6 [facility] Last Admin: 10/24/18 07:30 Dose: 3 ml Amitriptyline HCl (Elavil) 50 mg PO HS [facility] Last Admin: 10/23/18 22:08 Dose: 50 mg Cholestyramine Resin (Questran) 4 gm PO DAILY [facility] Last Admin: 10/20/18 10:20 Dose: 4 gm Clonidine HCl (Catapres) 0.1 mg PO DAILY [facility] Last Admin: 10/24/18 11:13 Dose: 0.1 mg Enoxaparin Sodium (Lovenox) 30 mg SC DAILY [facility] Last Admin: 10/22/18 10:59 Dose: 30 mg Fenofibrate (Tricor) 48 mg PO DAILY [facility] Last Admin: 10/24/18 11:15 Dose: 48 mg Ferric Sodium Gluconate Complex (Ferrlecit) 125 mg IVPB DAILY [facility] Stop: 10/30/18 10:01 Last Admin: 10/24/18 11:16 Dose: 125 mg Ferrous Sulfate (Feosol) 325 mg PO DAILY [facility] Last Admin: 10/24/18 13:41 Dose: 325 mg Gabapentin (Neurontin) 800 mg PO DAILY [facility] Last Admin: 10/24/18 11:15 Dose: 800 mg Glimepiride (Amaryl) 2 mg PO DAILY [facility] Last Admin: 10/24/18 11:13 Dose: Not Given Ceftriaxone Sodium (Rocephin Iv 1 Gm Duplex) 50 mls @ 100 mls/hr IVPB Q24H [facility]; Protocol Last Admin: 10/23/18 16:52 Dose: 100 mls/hr Azithromycin 500 mg/ Sodium (Chloride) 250 mls @ 250 mls/hr IVPB Q24H [facility]; Protocol Last Admin: 10/23/18 17:45 Dose: 250 mls/hr Sodium Chloride (Sodium Chloride 0.9%) 1,000 mls @ 100 mls/hr IV .Q10H [facility] Last Admin: 10/24/18 13:40 Dose: Not Given Insulin Aspart (Novolog) 0 unit SC ACHS [facility]; Protocol Last Admin: 10/24/18 13:40 Dose: Not Given Loratadine (Claritin) 10 mg PO DAILY [facility] Last Admin: 10/24/18 11:14 Dose: 10 mg Losartan Potassium (Cozaar) 50 mg PO DAILY [facility] Last Admin: 10/24/18 11:14 Dose: 50 mg Oxymetazoline HCl (Afrin 0.05%) 0 ml NS DAILY PRN PRN Reason: EPISTAXIS Pantoprazole Sodium (Protonix Susp) 40 mg PO 0600 [facility] Last Admin: 10/24/18 05:54 Dose: 40 mg Polyethylene Glycol (Miralax) 17 gm PO HS [facility] Last Admin: 10/22/18 21:55 Dose: Not Given Rosuvastatin Calcium (Crestor) 5 mg PO HS [facility] Last Admin: 10/23/18 22:07 Dose: 5 mg Sitagliptin Phosphate (Januvia) 25 mg PO DAILY [facility] Last Admin: 10/24/18 11:16 Dose: Not Given Tramadol HCl (Ultram) 50 mg PO TID PRN PRN Reason: Pain, Mild (1-3) - Labs Labs: 10/24/18 07:23 10/24/18 07:23 - Constitutional Appears: Well - Head Exam Head Exam: ATRAUMATIC, NORMAL INSPECTION, NORMOCEPHALIC - Eye Exam Eye Exam: EOMI, Normal appearance, PERRL Pupil Exam: NORMAL ACCOMODATION, PERRL - ENT Exam ENT Exam: Mucous Membranes Moist, Normal Exam - Neck Exam Neck Exam: Full ROM, Normal Inspection. absent: Lymphadenopathy - Respiratory Exam Respiratory Exam: Decreased Breath Sounds - Cardiovascular Exam Cardiovascular Exam: REGULAR RHYTHM, +S1, +S2 - GI/Abdominal Exam GI & Abdominal Exam: Soft, Diminished Bowel Sounds - Rectal Exam Rectal Exam: Deferred
[2018-10-24] MEDS: cefTRIAXone IV 1 gm in Dextros 50 ML IVPB SCH (17:17)
[2018-10-24] MEDS: Azithromycin 500 MG in Sodium Chloride 0.9% 250 ML IVPB SCH (18:38)
[2018-10-24] MEDS: POLYETHYLENE GLYCOL 3350 17 GM/Dose PACKET PO SCH (22:22)
[2018-10-25] MEDS: Pantoprazole 40 mg Susp UD PO SCH (05:58)
[2018-10-25] MEDS: (Novolog) Insulin Aspart, Recombinant 100 u/ml 10 ml vial SC SCH ×4 (08:16→23:31)
[2018-10-25] MEDS: Sodium Chloride 0.9% 1,000 ML IV SCH (08:38)
[2018-10-25] MEDS: Ferric Sodium Gluconat Complex 62.5 mg/5 ml Vial IVPB SCH (09:24)
--- NOTE | 2018-10-25 15:02 | CP.PCM.PN ---
Subjective - Date & Time of Evaluation Date of Evaluation: 10/25/18 Time of Evaluation: 09:00 - Subjective Subjective: afebrile alert IN Nad IV rx renewed Objective - Vital Signs/Intake and Output Vital Signs (last 24 hours): Temp Pulse Resp BP Pulse Ox 97.6 F 90 20 128/78 97 10/25/18 07:58 10/25/18 07:58 10/25/18 07:58 10/25/18 07:58 10/25/18 07:58 Intake and Output: 10/25/18 10/25/18 06:59 18:59 Intake Total 1000 Output Total Balance 1000 - Medications Medications: Current Medications Amitriptyline HCl (Elavil) 50 mg PO HS [facility] Last Admin: 10/24/18 22:21 Dose: 50 mg Cholestyramine Resin (Questran) 4 gm PO DAILY [facility] Last Admin: 10/20/18 10:20 Dose: 4 gm Clonidine HCl (Catapres) 0.1 mg PO DAILY [facility] Last Admin: 10/25/18 09:22 Dose: 0.1 mg Enoxaparin Sodium (Lovenox) 30 mg SC DAILY [facility] Last Admin: 10/22/18 10:59 Dose: 30 mg Fenofibrate (Tricor) 48 mg PO DAILY [facility] Last Admin: 10/25/18 09:24 Dose: 48 mg Ferric Sodium Gluconate Complex (Ferrlecit) 125 mg IVPB DAILY [facility] Stop: 10/30/18 10:01 Last Admin: 10/25/18 09:24 Dose: 125 mg Ferrous Sulfate (Feosol) 325 mg PO DAILY [facility] Last Admin: 10/25/18 09:22 Dose: 325 mg Gabapentin (Neurontin) 800 mg PO DAILY [facility] Last Admin: 10/25/18 09:24 Dose: 800 mg Glimepiride (Amaryl) 2 mg PO DAILY [facility] Last Admin: 10/25/18 09:23 Dose: Not Given Ceftriaxone Sodium (Rocephin Iv 1 Gm Duplex) 50 mls @ 100 mls/hr IVPB Q24H [facility]; Protocol Last Admin: 10/24/18 17:17 Dose: 100 mls/hr Azithromycin 500 mg/ Sodium (Chloride) 250 mls @ 250 mls/hr IVPB Q24H [facility]; Protocol Last Admin: 10/24/18 18:38 Dose: 250 mls/hr Insulin Aspart (Novolog) 0 unit SC [facility]; Protocol Last Admin: 10/25/18 12:08 Dose: Not Given Loratadine (Claritin) 10 mg PO DAILY [facility] Last Admin: 10/25/18 09:22 Dose: 10 mg Losartan Potassium (Cozaar) 50 mg PO DAILY [facility] Last Admin: 10/25/18 09:22 Dose: 50 mg Oxymetazoline HCl (Afrin 0.05%) 0 ml NS DAILY PRN PRN Reason: EPISTAXIS Pantoprazole Sodium (Protonix Susp) 40 mg PO 0600 [facility] Last Admin: 10/25/18 05:58 Dose: 40 mg Polyethylene Glycol (Miralax) 17 gm PO [facility] Last Admin: 10/24/18 22:22 Dose: 17 gm Rosuvastatin Calcium (Crestor) 5 mg PO [facility] Last Admin: 10/24/18 22:22 Dose: 5 mg Sitagliptin Phosphate (Januvia) 25 mg PO DAILY [facility] Last Admin: 10/25/18 09:23 Dose: Not Given Tramadol HCl (Ultram) 50 mg PO TID PRN PRN Reason: Pain, Mild (1-3) - Labs Labs: 10/24/18 07:23 10/24/18 07:23 - Constitutional Appears: Non-toxic, No Acute Distress, Chronically Ill - Head Exam Head Exam: ATRAUMATIC, NORMAL INSPECTION, NORMOCEPHALIC - Eye Exam Eye Exam: EOMI, Normal appearance, PERRL Pupil Exam: NORMAL ACCOMODATION, PERRL - ENT Exam ENT Exam: Mucous Membranes Moist, Normal Exam - Neck Exam Neck Exam: Full ROM, Normal Inspection. absent: Lymphadenopathy - Respiratory Exam Respiratory Exam: Clear to Ausculation Bilateral, NORMAL BREATHING PATTERN - Cardiovascular Exam Cardiovascular Exam: REGULAR RHYTHM, +S1, +S2. absent: Murmur - GI/Abdominal Exam GI & Abdominal Exam: Soft, Normal Bowel Sounds. absent: Tenderness - Exam Exam: NORMAL INSPECTION - Extremities Exam Extremities Exam: absent: Joint Swelling, Pedal Edema - Back Exam Back Exam: NORMAL INSPECTION - Neurological Exam Neurological Exam: Alert, Awake, CN II-XII Intact, Normal Gait, Oriented x3 - Psychiatric Exam Psychiatric exam: Normal Affect, Normal Mood - Skin Skin Exam: Dry, Intact, Normal Color, Warm Assessment and Plan (1) Abdominal colic Status: Acute (2) Acute renal insufficiency Status: Acute (3) Cough Status: Acute (4) Acute kidney injury Status: Acute (5) Depression Status: Acute (6) Pneumonia Status: Acute - Assessment and Plan (Free Text) Assessment: improved marcie and sepsis resolved follow up CXR will renew IV antibiotics
--- NOTE | 2018-10-25 15:56 | CP.PCM.PN ---
Subjective - Date & Time of Evaluation Date of Evaluation: 10/25/18 Time of Evaluation: 07:30 - Subjective Subjective: clinically same Objective - Vital Signs/Intake and Output Vital Signs (last 24 hours): Temp Pulse Resp BP Pulse Ox 97.6 F 90 20 128/78 97 10/25/18 07:58 10/25/18 07:58 10/25/18 07:58 10/25/18 07:58 10/25/18 07:58 Intake and Output: 10/25/18 10/25/18 06:59 18:59 Intake Total 1000 Output Total Balance 1000 - Medications Medications: Current Medications Amitriptyline HCl (Elavil) 50 mg PO HS [facility] Last Admin: 10/24/18 22:21 Dose: 50 mg Cholestyramine Resin (Questran) 4 gm PO DAILY [facility] Last Admin: 10/20/18 10:20 Dose: 4 gm Clonidine HCl (Catapres) 0.1 mg PO DAILY [facility] Last Admin: 10/25/18 09:22 Dose: 0.1 mg Enoxaparin Sodium (Lovenox) 30 mg SC DAILY [facility] Last Admin: 10/22/18 10:59 Dose: 30 mg Fenofibrate (Tricor) 48 mg PO DAILY [facility] Last Admin: 10/25/18 09:24 Dose: 48 mg Ferric Sodium Gluconate Complex (Ferrlecit) 125 mg IVPB DAILY [facility] Stop: 10/30/18 10:01 Last Admin: 10/25/18 09:24 Dose: 125 mg Ferrous Sulfate (Feosol) 325 mg PO DAILY [facility] Last Admin: 10/25/18 09:22 Dose: 325 mg Gabapentin (Neurontin) 800 mg PO DAILY [facility] Last Admin: 10/25/18 09:24 Dose: 800 mg Glimepiride (Amaryl) 2 mg PO DAILY [facility] Last Admin: 10/25/18 09:23 Dose: Not Given Ceftriaxone Sodium (Rocephin Iv 1 Gm Duplex) 50 mls @ 100 mls/hr IVPB Q24H [facility]; Protocol Last Admin: 10/24/18 17:17 Dose: 100 mls/hr Azithromycin 500 mg/ Sodium (Chloride) 250 mls @ 250 mls/hr IVPB Q24H [facility]; Protocol Last Admin: 10/24/18 18:38 Dose: 250 mls/hr Insulin Aspart (Novolog) 0 unit SC ACHS [facility]; Protocol Last Admin: 10/25/18 12:08 Dose: Not Given Loratadine (Claritin) 10 mg PO DAILY [facility] Last Admin: 10/25/18 09:22 Dose: 10 mg Losartan Potassium (Cozaar) 50 mg PO DAILY [facility] Last Admin: 10/25/18 09:22 Dose: 50 mg Oxymetazoline HCl (Afrin 0.05%) 0 ml NS DAILY PRN PRN Reason: EPISTAXIS Pantoprazole Sodium (Protonix Susp) 40 mg PO 0600 [facility] Last Admin: 10/25/18 05:58 Dose: 40 mg Polyethylene Glycol (Miralax) 17 gm PO HS [facility] Last Admin: 10/24/18 22:22 Dose: 17 gm Rosuvastatin Calcium (Crestor) 5 mg PO [facility] Last Admin: 10/24/18 22:22 Dose: 5 mg Sitagliptin Phosphate (Januvia) 25 mg PO DAILY [facility] Last Admin: 10/25/18 09:23 Dose: Not Given Tramadol HCl (Ultram) 50 mg PO TID PRN PRN Reason: Pain, Mild (1-3) - Labs Labs: 10/24/18 07:23 10/24/18 07:23 - Constitutional Appears: Well - Head Exam Head Exam: ATRAUMATIC, NORMAL INSPECTION, NORMOCEPHALIC - Eye Exam Eye Exam: EOMI, Normal appearance, PERRL Pupil Exam: NORMAL ACCOMODATION, PERRL - ENT Exam ENT Exam: Mucous Membranes Moist, Normal Exam - Neck Exam Neck Exam: Full ROM, Normal Inspection. absent: Lymphadenopathy - Respiratory Exam Respiratory Exam: Decreased Breath Sounds - Cardiovascular Exam Cardiovascular Exam: REGULAR RHYTHM, +S1, +S2 - GI/Abdominal Exam GI & Abdominal Exam: Soft, Diminished Bowel Sounds - Rectal Exam Rectal Exam: Deferred
[2018-10-25] MEDS: cefTRIAXone IV 1 gm in Dextros 50 ML IVPB SCH (17:52)
[2018-10-25] MEDS: Azithromycin 500 MG in Sodium Chloride 0.9% 250 ML IVPB SCH (18:08)
[2018-10-25] MEDS: POLYETHYLENE GLYCOL 3350 17 GM/Dose PACKET PO SCH (23:31)
[2018-10-26] MEDS: Pantoprazole 40 mg Susp UD PO SCH (05:54)
[2018-10-26] MEDS: (Novolog) Insulin Aspart, Recombinant 100 u/ml 10 ml vial SC SCH ×2 (07:33→11:20)
[2018-10-26 08:15] VITALS: BP 138/85; PULSE 80; TEMP 97.5; O2SAT 96
--- NOTE | 2018-10-26 10:11 | RAD ---
Date of service: 10/26/2018 HISTORY: follow up COMPARISON: 10/19/2018 TECHNIQUE: Chest PA and lateral FINDINGS: LUNGS: Patchy increased markings at the right lung base. PLEURA: No significant pleural effusion identified. No pneumothorax apparent. CARDIOVASCULAR: No aortic atherosclerotic calcification present. Normal cardiac size. OSSEOUS STRUCTURES: No significant abnormalities. VISUALIZED UPPER ABDOMEN: Dilated loops of small bowel in the upper and mid abdomen. OTHER FINDINGS: None. IMPRESSION: Improving but persistent patchy opacification at the right lung base suggestive for resolving infiltrate. Post treatment interval follow-up is recommended. Dilated loops of small bowel seen within the upper abdomen. Clinical correlation.
[2018-10-26] MEDS: Ferric Sodium Gluconat Complex 62.5 mg/5 ml Vial IVPB SCH (10:17)
[2018-10-26 11:02] LABS: BASO # 0.1 K/uL (0.0-0.2); EOS # 0.5 K/uL (0.0-0.7); LYMPH # 2.1 K/uL (1.0-4.3); LYMPH % 20.6 % (20.0-40.0); MEAN CELL VOLUME 80.5 fL (80.0-94.0); MEAN CORPUSCULAR HEMOGLOBIN 25.6 pg (27.0-31.0); MEAN CORPUSCULAR HGB CONC 31.8 g/dL (33.0-37.0); MEAN PLATELET VOLUME 8.2 fL (7.2-11.7); MONO # 0.9 K/uL (0.0-0.8); MONO % 9.4 % (0.0-10.0); NEUT # 6.4 K/uL (1.8-7.0); NRBC % 0.2 % (0.0-2.0); RBC 3.51 Mil/uL (4.40-5.90); RED CELL DISTRIBUTION WIDTH 22.3 % (11.5-14.5)
--- NOTE | 2018-10-26 11:08 | CP.PCM.PN ---
Subjective - Date & Time of Evaluation Date of Evaluation: 10/26/18 Time of Evaluation: 08:00 - Subjective Subjective: cxr IMPROVING LORI RESOLVING SLOWLY Objective - Vital Signs/Intake and Output Vital Signs (last 24 hours): Temp Pulse Resp BP Pulse Ox 97.5 F L 80 20 138/85 96 10/26/18 07:00 10/26/18 07:00 10/26/18 07:00 10/26/18 07:00 10/26/18 07:00 Intake and Output: 10/26/18 10/26/18 06:59 18:59 Intake Total 100 Output Total 400 Balance -300 - Medications Medications: Current Medications Amitriptyline HCl (Elavil) 50 mg PO HS [facility] Last Admin: 10/25/18 22:04 Dose: 50 mg Cholestyramine Resin (Questran) 4 gm PO DAILY [facility] Last Admin: 10/20/18 10:20 Dose: 4 gm Clonidine HCl (Catapres) 0.1 mg PO DAILY [facility] Last Admin: 10/26/18 10:16 Dose: 0.1 mg Enoxaparin Sodium (Lovenox) 30 mg SC DAILY [facility] Last Admin: 10/22/18 10:59 Dose: 30 mg Fenofibrate (Tricor) 48 mg PO DAILY [facility] Last Admin: 10/26/18 10:18 Dose: 48 mg Ferric Sodium Gluconate Complex (Ferrlecit) 125 mg IVPB DAILY [facility] Stop: 10/30/18 10:01 Last Admin: 10/26/18 10:17 Dose: 125 mg Ferrous Sulfate (Feosol) 325 mg PO DAILY [facility] Last Admin: 10/26/18 10:17 Dose: 325 mg Gabapentin (Neurontin) 800 mg PO DAILY [facility] Last Admin: 10/26/18 10:17 Dose: 800 mg Glimepiride (Amaryl) 2 mg PO DAILY [facility] Last Admin: 10/26/18 10:17 Dose: 2 mg Azithromycin 500 mg/ Sodium (Chloride) 250 mls @ 250 mls/hr IVPB Q24H [facility]; Protocol Ceftriaxone Sodium 1 gm/ (Sodium Chloride) 100 mls @ 100 mls/hr IVPB Q24H [facility]; Protocol Insulin Aspart (Novolog) 0 unit SC ACHS [facility]; Protocol Last Admin: 10/26/18 07:33 Dose: Not Given Loratadine (Claritin) 10 mg PO DAILY [facility] Last Admin: 10/26/18 10:16 Dose: 10 mg Losartan Potassium (Cozaar) 50 mg PO DAILY [facility] Last Admin: 10/26/18 10:16 Dose: 50 mg Oxymetazoline HCl (Afrin 0.05%) 0 ml NS DAILY PRN PRN Reason: EPISTAXIS Pantoprazole Sodium (Protonix Susp) 40 mg PO 0600 [facility] Last Admin: 10/26/18 05:54 Dose: 40 mg Polyethylene Glycol (Miralax) 17 gm PO HS [facility] Last Admin: 10/25/18 23:31 Dose: Not Given Rosuvastatin Calcium (Crestor) 5 mg PO HS [facility] Last Admin: 10/25/18 22:04 Dose: 5 mg Sitagliptin Phosphate (Januvia) 25 mg PO DAILY [facility] Last Admin: 10/26/18 10:37 Dose: 25 mg Tramadol HCl (Ultram) 50 mg PO TID PRN PRN Reason: Pain, Mild (1-3) - Labs Labs: 10/26/18 10:45 10/24/18 07:23 Assessment and Plan (1) Abdominal colic Status: Acute (2) Acute renal insufficiency Status: Acute (3) Cough Status: Acute (4) Acute kidney injury Status: Acute (5) Depression Status: Acute (6) Pneumonia Status: Acute
[2018-10-26 11:15] LABS: CALCIUM 9.6 mg/dl (8.6-10.4)
--- NOTE | 2018-10-26 17:10 | CP.PCM.PN ---
Subjective - Date & Time of Evaluation Date of Evaluation: 10/26/18 Time of Evaluation: 11:00 - Subjective Subjective: alert, orientedx3, denies pain or distress. Objective - Vital Signs/Intake and Output Vital Signs (last 24 hours): Temp Pulse Resp BP Pulse Ox 97.5 F L 80 20 138/85 96 10/26/18 07:00 10/26/18 07:00 10/26/18 07:00 10/26/18 07:00 10/26/18 07:00 Intake and Output: 10/26/18 10/26/18 06:59 18:59 Intake Total 100 Output Total 400 Balance -300 - Labs Labs: 10/26/18 10:45 10/26/18 10:45 Assessment and Plan - Assessment and Plan (Free Text) Assessment: 43 year old male admitted with pneumonia, constipation, seen and examined. Alert and orientedx3, ambulatory , denies any acute pain or distress. No more nasal bleeding. Packing was removed by DR Graff. Discussed with DR Kimmie Porter, plan to discharge home on oral zithromax for 3 days. Advised to follow up in the office in 1 week.
[2018-10-26] MEDS ORDERED: Azithromycin 500 MG in Sodium Chloride 0.9% 250 ML IVPB SCH (18:00)
--- NOTE | 2018-10-27 06:08 | CON ---
DATE: 10/26/2018 REASON FOR FOLLOWUP VISIT: Epistaxis. HISTORY: This is a 43-year-old male status post epistaxis on the left, had the nose packed 3 days ago. The bleeding was constant, mild in intensity on the left for one day, has not had any bleeding since the nose was packed 3 days ago. PAST MEDICAL HISTORY: As noted in the chart by me. MEDICATIONS: As noted in the chart by me. ALLERGIES: NOTED IN THE CHART BY ME. PHYSICAL EXAMINATION: HEAD: Atraumatic, normocephalic. FACE: Good facial movements bilaterally. There is defects and scarring of the face. EXTERNAL NOSE AND EARS: No masses, no lesions, no erythema, no edema. ORAL CAVITY AND OROPHARYNX: No masses, no lesions, no erythema, no edema. LIPS AND GUMS: No masses, no lesions, no erythema, no edema. INTERNAL NOSE: Pack removed. No bleeding noted. CONSTITUTIONAL: Well fed, well nourished. COMMUNICATION: Communicates well and appropriately. NECK: Supple. THYROID: No thyromegaly, no goiter. LYMPH NODES: No lymphadenopathy of the neck. ASSESSMENT: 1. Epistaxis on the left, controlled. 2. Deviated septum. PLAN: Okay to discharge home from an ENT point of view. Estevan Graff MD
--- NOTE | 2018-11-04 11:54 | PQF ---
PROVIDER RESPONSE TEXT: Sepsis Ruled in. S/p IV antibiotic REVIEWER QUERY TEXT: Rule Out Sepsis Clarification Rule out Sepsis is documented in the Medical Record. Please clarify whether: -- Patient has sepsis - Please document confirmed, suspected or probable causative organism - Please document confirmed, suspected or probable localized infection - Please clarify if sepsis is related to a device - Please clarify if sepsis was present on admission -- Sepsis was ruled out (include corresponding diagnosis for patient?s clinical picture and treatment ) -- Patient had sepsis which is resolved -- Other, please specify The patient's Clinical Indicators include: SEPSIS DOCUMENTED 10/25 AND 10/26 PLEASE CLARIFY AND DOCUMENT IF SEPSIS WAS R/I OR R/O . Query created by: Mary Joel on 11/02/2018 4:26 PM Electronically signed by: Marilee CANNON 11/04/2018 11:51 AM
== END 2018-10-26 14:49 | disposition home or self-care (01) | DRG 194 ==
LOC: C.ER 15:09 → C.3T 19:11
PROVIDERS: ADMIT Internal Medicine Critical Care Medicine; ATTEND Internal Medicine Critical Care Medicine
PROC: 2Y41X5Z Packing of Nasal Region using Packing Material (ICD-10-PCS; principal; 2018-10-23)
DX: J18.9 Pneumonia, unspecified organism (principal); N17.9 Acute kidney failure, unspecified; J34.2 Deviated nasal septum; R04.0 Epistaxis; Z85.819 Personal history of malignant neoplasm of unspecified site of lip, oral cavity, and pharynx; E11.22 Type 2 diabetes mellitus with diabetic chronic kidney disease; D63.1 Anemia in chronic kidney disease; I12.9 Hypertensive chronic kidney disease with stage 1 through stage 4 chronic kidney disease, or unspecified chronic kidney disease; K59.09 Other constipation; N18.9 Chronic kidney disease, unspecified; F32.9 Major depressive disorder, single episode, unspecified

== ENCOUNTER 2018-12-29 13:46 | Observation (INO) | payer MEDICARE, MEDICAID ==
[2018-12-29 13:47] VITALS: BMI 35.5
[2018-12-29] MEDS ORDERED: Sodium Chloride 0.9% 500 ML IV STA (15:30)
[2018-12-29 16:02] LABS: BASO # 0.1 K/uL (0.0-0.2); BASO % 1.1 % (0.0-2.0); EOS # 0.2 K/uL (0.0-0.7); EOS % 3.5 % (0.0-4.0); HEMOGLOBIN 9.2 g/dL (12.0-18.0); LYMPH # 1.3 K/uL (1.0-4.3); LYMPH % 20.5 % (20.0-40.0); MEAN CORPUSCULAR HEMOGLOBIN 27.8 pg (27.0-31.0); MEAN CORPUSCULAR HGB CONC 32.2 g/dL (33.0-37.0); MEAN PLATELET VOLUME 8.2 fL (7.2-11.7); MONO # 0.8 K/uL (0.0-0.8); MONO % 12.2 % (0.0-10.0); NEUT % 62.7 % (50.0-75.0); RBC 3.29 Mil/uL (4.40-5.90); RED CELL DISTRIBUTION WIDTH 17.8 % (11.5-14.5); WHITE BLOOD COUNT 6.4 K/uL (4.8-10.8)
[2018-12-29 16:07] LABS: MEAN CELL VOLUME 86.4 fL (80.0-94.0)
--- NOTE | 2018-12-29 16:12 | RAD ---
HISTORY: cough, ? pneumonia COMPARISON: Chest x-ray performed 10/26/18 TECHNIQUE: Chest PA and lateral, 2 views FINDINGS: LUNGS: Mild patchy right lower lobe atelectasis or pneumonia. Please note that chest x-ray has limited sensitivity for the detection of pulmonary masses. PLEURA: No significant pleural effusion identified. No definite pneumothorax . CARDIOVASCULAR: Heart size appears top normal. No atherosclerotic calcification present. OSSEOUS STRUCTURES: Degenerative changes. VISUALIZED UPPER ABDOMEN: Unremarkable. OTHER FINDINGS: None. IMPRESSION: Mild patchy right lower lobe atelectasis or pneumonia.
[2018-12-29 16:13] LABS: CALCIUM 10.2 mg/dl (8.6-10.4)
[2018-12-29] MEDS ORDERED: Azithromycin 500mg/250ML NS 500 MG/250 ML BAG IV ONE (16:15)
--- NOTE | 2018-12-29 16:19 | C.PDOC ---
History Of Present Illness 43 year old male presents to the ED sent by PMD Dr. Contreras for treatment. CT scan showing pneumonia as per . Reports he has had intermittent cough and fever for the past 2 weeks. Denies any other complaints. Time Seen by Provider: 12/29/18 14:18 Chief Complaint (Nursing): Medical Clearance History Per: Patient History/Exam Limitations: no limitations Onset/Duration Of Symptoms: Days Current Symptoms Are (Timing): Still Present Reports Recently: Treated By A Physician Past Medical History Reviewed: Historical Data, Nursing Documentation, Vital Signs Vital Signs: Last Vital Signs Temp 97.4 F L 12/29/18 14:12 Pulse 102 H 12/29/18 14:12 Resp 20 12/29/18 14:12 BP 120/80 12/29/18 14:12 Pulse Ox 100 12/29/18 14:12 Primary Care Provider: Himanshu Contreras - Medical History PMH: Anemia, Diabetes, HTN, Hypercholesterolemia, Chronic Kidney Disease Other PMH: oral cancer Other Surgeries: Hx of surgeries - [facility] Procedures ENTERAL INFUSION OF CONCENTRATED NUT. SUBSTANCES (10/16/13) INFLUENZA VACCINATION (10/16/13) PACKING OF NASAL REGION USING PACKING MATERIAL (10/19/18) PHYSICAL THERAPY NEC (10/18/14) REPLACE GASTROSTOMY TUBE (09/16/14) VACCINATION NEC (10/16/13) Family History: States: No Known Family Hx - Social History Hx Tobacco Use: No Hx Alcohol Use: No Hx Substance Use: No - Immunization History Hx Tetanus Toxoid Vaccination: No Hx Influenza Vaccination: No Hx Pneumococcal Vaccination: No Review Of Systems Except As Marked, All Systems Reviewed And Found Negative. Constitutional: Positive for: Fever Cardiovascular: Negative for: Chest Pain, Palpitations Respiratory: Positive for: Cough. Negative for: Shortness of Breath Gastrointestinal: Negative for: Nausea, Vomiting, Abdominal Pain, Diarrhea Physical Exam - Physical Exam Appears: Non-toxic, No Acute Distress Skin: Warm, Dry, No Rash Head: Normacephalic, Other (disfigured jaw s/p surgery ) Eye(s): bilateral: Normal Inspection, PERRL, EOMI Nose: Normal Oral Mucosa: Moist Neck: Supple Chest: Symmetrical Cardiovascular: Rhythm Regular Respiratory: Decreased Breath Sounds (right lung ), No Rales, No Rhonchi, No Wheezing Gastrointestinal/Abdominal: Soft, No Tenderness Neurological/Psych: Oriented x3, Normal Speech, Normal Cognition Gait: Steady ED Course And Treatment - Laboratory Results Result Diagrams: 12/29/18 15:57 12/29/18 15:57 Lab Results: Total Bilirubin 0.4 mg/dL (0.2-1.3) 12/29/18 15:57 O2 Sat by Pulse Oximetry: 100 (RA) Pulse Ox Interpretation: Normal - Other Rad CXR X-Ray: Viewed By Me, Read By Radiologist Interpretation: Accession No. : [id number]. Patient Name / ID : AXEL GAURANH / [id number]. Exam Date : 12/29/2018 15:42:03 ( Approved ). Study Comment : Sex / Age : M / 43Y. Creator : Sandy Mclean MD. Dictator : Sandy Mclean MD. Fire Extinguisher Charger : Charge Weigher : Sandy Mclean MD. Approver2 : Report Date : 12/29/2018 16:08:45. My Comment : . HISTORY: cough, ? pneumonia. COMPARISON: Chest x-ray performed 10/26/18. TECHNIQUE: Chest PA and lateral, 2 views. FINDINGS: LUNGS: Mild patchy right lower lobe atelectasis or pneumonia. Please note that chest x-ray has limited sensitivity for the detection of pulmonary masses. PLEURA: No significant pleural effusion identified. No definite pneumothorax . CARDIOVASCULAR: Heart size appears top normal. No atherosclerotic calcification present. OSSEOUS STRUCTURES: Degenerative changes. VISUALIZED UPPER ABDOMEN: Unremarkable. OTHER FINDINGS: None. IMPRESSION: Mild patchy right lower lobe atelectasis or pneumonia. Progress Note: EKG and CXR ordered. Blood collected and sent to the lab for analysis. Patient treated with Rocephin, Zithromax and IV fluids. Spoke with Dr. Anderson who agrees to take patient for observation. Agrees to contact Dr. Contreras to report results. Disposition - Disposition Disposition: HOSPITALIZED Disposition Time: 16:22 Condition: STABLE - Clinical Impression Clinical Impression: Pneumonia - PA / SCREENING NURSE / Resident Statement MD/DO has reviewed & agrees with the documentation as recorded. - Scribe Statement The provider has reviewed the documentation as recorded by the Scribe Kaila Manjarrez All medical record entries made by the Hannahibanselmo were at my direction and personally dictated by me. I have reviewed the chart and agree that the record accurately reflects my personal performance of the history, physical exam, medical decision making, and the department course for this patient. I have also personally directed, reviewed, and agree with the discharge instructions and disposition. Decision To Admit - Pt Status Changed To: Hospital Disposition Of: Observation - . Bed Request Type: Regular Admitting Physician: Konstantin Anderson Patient Diagnosis: Pneumonia
[2018-12-29 16:30] LABS: ALBUMIN 4.2 g/dL (3.5-5.0)
[2018-12-29] MEDS ORDERED: Azithromycin 500mg/250ML NS 500 MG/250 ML BAG IVPB ONE (17:32)
--- NOTE | 2018-12-29 17:36 | CP.PCM.HP ---
History of Present Illness - History of Present Illness History of Present Illness: 43 year old male presents to the ED sent by PMD Dr. Contreras for treatment. CT scan showing pneumonia as per . Reports he has had intermittent cough and fever for the past 2 weeks. Denies any other complaints. Present on Admission - Present on Admission Any Indicators Present on Admission: No Review of Systems - Review of Systems All systems: reviewed and no additional remarkable complaints except (see HPI, rest negative) Past Patient History - Infectious Disease Hx of Infectious Diseases: None - Past Medical History & Family History Past Medical History?: Yes - Past Social History Smoking Status: Never Smoked - CARDIAC Hx Hypercholesterolemia: Yes Hx Hypertension: Yes - PULMONARY Hx Respiratory Disorders: No - NEUROLOGICAL Hx Neurological Disorder: No - HEENT Hx HEENT Problems: No - RENAL Hx Chronic Kidney Disease: No - ENDOCRINE/METABOLIC Hx Diabetes Mellitus Type 2: Yes - HEMATOLOGICAL/ONCOLOGICAL Hx Anemia: Yes - INTEGUMENTARY Hx Dermatological Problems: Yes Other/Comment: left leg scar from the grafting to face - MUSCULOSKELETAL/RHEUMATOLOGICAL Hx Musculoskeletal Disorders: No Hx Falls: Yes - GASTROINTESTINAL Hx Gastrointestinal Disorders: Yes Hx Constipation: Yes HX Swallowing Problems: Yes Other/Comment: MOUTH CANCER - GENITOURINARY/GYNECOLOGICAL Hx Genitourinary Disorders: No - PSYCHIATRIC Hx Substance Use: No - SURGICAL HISTORY Hx Surgeries: Yes Other/Comment: skin grafting of the left side of the mouth November - ANESTHESIA Hx Anesthesia: Yes Hx Anesthesia Reactions: No Meds Allergies/Adverse Reactions: Allergies Allergy/AdvReac Type Severity Reaction Status Date / Time No Known Allergies Allergy Verified 12/29/18 14:15 Physical Exam - Head Exam Head Exam: NORMAL INSPECTION - Eye Exam Eye Exam: Normal appearance - ENT Exam ENT Exam: Mucous Membranes Moist - Respiratory Exam Respiratory Exam: Decreased Breath Sounds - Cardiovascular Exam Cardiovascular Exam: REGULAR RHYTHM, +S1, +S2 - GI/Abdominal Exam GI & Abdominal Exam: Normal Bowel Sounds, Soft - Extremities Exam Extremities exam: Positive for: normal inspection Results - Vital Signs Recent Vital Signs: Last Vital Signs Temp 97.4 F L 12/29/18 14:12 Pulse 102 H 12/29/18 14:12 Resp 20 12/29/18 14:12 BP 120/80 12/29/18 14:12 Pulse Ox 100 12/29/18 17:04 - Labs Result Diagrams: 12/29/18 15:57 12/29/18 15:57 Labs: Laboratory Results - last 24 hr 12/29/18 12/29/18 15:57 15:57 WBC 6.4 RBC 3.29 L Hgb 9.2 L Hct 28.4 L MCV 86.4 D MCH 27.8 MCHC 32.2 L RDW 17.8 H Plt Count 268 MPV 8.2 Neut % (Auto) 62.7 Lymph % (Auto) 20.5 [place] % (Auto) 12.2 H Eos % (Auto) 3.5 Baso % (Auto) 1.1 Neut # (Auto) 4.0 Lymph # (Auto) 1.3 [place] # (Auto) 0.8 Eos # (Auto) 0.2 Baso # (Auto) 0.1 Sodium 143 Potassium 5.6 H Chloride 115 H Carbon Dioxide 20 L Anion Gap 14 BUN 41 H Creatinine 1.9 H Est GFR ( Amer) 47 Est GFR (Non-Af Amer) 39 Random Glucose 105 D Calcium 10.2 Total Bilirubin 0.4 AST 33 ALT 20 L Alkaline Phosphatase 55 Total Protein 8.6 H Albumin 4.2 Globulin 4.4 H Albumin/Globulin Ratio 1.0 Assessment & Plan (1) Pneumonia Status: Acute (2) HTN (hypertension) Status: Acute (3) Diabetes Status: Acute (4) Oropharyngeal cancer Status: Acute - Assessment and Plan (Free Text) Plan: Continue Abx Follow cx ID consult Obtain out patient CT report Accucheck Insulin coverage Pain control
[2018-12-29 17:59] VITALS: RESP 20
[2018-12-29] MEDS: Azithromycin 500mg/250ML NS 500 MG/250 ML BAG IVPB SCH (18:07)
[2018-12-29] MEDS: (Novolog) Insulin Aspart, Recombinant 100 u/ml 10 ml vial SC SCH (21:11)
[2018-12-30] MEDS: (Novolog) Insulin Aspart, Recombinant 100 u/ml 10 ml vial SC SCH ×3 (08:18→17:00)
[2018-12-30] MEDS ORDERED: PROTEASE PO SCH ×2 (10:00)
[2018-12-30] MEDS ORDERED: CHLORZOXAZONE 750 MG PO SCH (10:00)
[2018-12-30] MEDS ORDERED: AMYLASE PO SCH ×2 (10:00)
[2018-12-30] MEDS ORDERED: LIPASE PO SCH ×2 (10:00)
[2018-12-30] MEDS: Enoxaparin 40 mg Syringe SC SCH (10:53)
--- NOTE | 2018-12-30 11:58 | CARD ---
APPROVED REPORT Date of service: 12/29/2018 EKG Measurement Heart [id number] <Conclusion> Normal sinus rhythm Normal ECG
--- NOTE | 2018-12-30 16:19 | CP.PCM.PN ---
Subjective - Date & Time of Evaluation Date of Evaluation: 12/30/18 Time of Evaluation: 16:19 Objective - Vital Signs/Intake and Output Vital Signs (last 24 hours): Temp Pulse Resp BP Pulse Ox 97.3 F L 98 H 20 129/78 96 12/30/18 16:00 12/30/18 16:00 12/30/18 16:00 12/30/18 16:00 12/30/18 16:00 Intake and Output: 12/30/18 12/30/18 06:59 18:59 Intake Total 240 360 Output Total 500 350 Balance -260 10 - Medications Medications: Current Medications Amitriptyline HCl (Elavil) 50 mg PO DAILY [facility] Last Admin: 12/30/18 12:36 Dose: 50 mg Enoxaparin Sodium (Lovenox) 40 mg SC DAILY [facility] Last Admin: 12/30/18 10:53 Dose: 40 mg Glimepiride (Amaryl) 2 mg PO DAILY [facility] Last Admin: 12/30/18 10:53 Dose: 2 mg Home Med (Chlorzoxazone [Lorzone]) 750 mg PO DAILY [facility] Home Med (Lipase/Protease/Amylase [Creon Dr 36,000 Units Capsule]) 1 ecc PO DAILY [facility] Ceftriaxone Sodium 1 gm/ (Sodium Chloride) 100 mls @ 100 mls/hr IVPB Q12H [facility]; Protocol Last Admin: 12/30/18 04:45 Dose: 100 mls/hr Azithromycin (Zithromax 500mg In Ns Addvantage) 500 mg in 250 mls @ 167 mls/hr IVPB Q24H [facility]; Protocol Last Admin: 12/29/18 18:07 Dose: Not Given Insulin Aspart (Novolog) 0 unit SC ACHS [facility]; Protocol Last Admin: 12/30/18 12:28 Dose: Not Given Morphine Sulfate (Morphine) 1 mg IVP Q4 PRN PRN Reason: Pain, severe (8-10) Last Admin: 12/29/18 19:58 Dose: 1 mg Rosuvastatin Calcium (Crestor) 5 mg PO HS [facility] Last Admin: 12/29/18 22:32 Dose: 5 mg - Labs Labs: 12/29/18 15:57 12/29/18 15:57 Assessment and Plan (1) Pneumonia Status: Acute (2) HTN (hypertension) Status: Acute (3) Diabetes Status: Acute (4) Oropharyngeal cancer Status: Acute
[2018-12-30] MEDS: Azithromycin 500mg/250ML NS 500 MG/250 ML BAG IVPB SCH (17:22)
[2018-12-31] MEDS: (Novolog) Insulin Aspart, Recombinant 100 u/ml 10 ml vial SC SCH ×5 (08:12→21:45)
[2018-12-31] MEDS: Enoxaparin 40 mg Syringe SC SCH (10:04)
--- NOTE | 2018-12-31 18:46 | CP.PCM.PN ---
Subjective - Date & Time of Evaluation Date of Evaluation: 12/31/18 Time of Evaluation: 18:46 Objective - Vital Signs/Intake and Output Vital Signs (last 24 hours): Temp Pulse Resp BP Pulse Ox 97.6 F 98 H 20 146/71 98 12/31/18 15:00 12/31/18 15:00 12/31/18 15:00 12/31/18 15:00 12/31/18 15:00 Intake and Output: 12/31/18 12/31/18 06:59 18:59 Intake Total 240 240 Output Total 400 400 Balance -160 -160 - Medications Medications: Current Medications Amitriptyline HCl (Elavil) 50 mg PO DAILY [facility] Last Admin: 12/31/18 10:04 Dose: 50 mg Enoxaparin Sodium (Lovenox) 40 mg SC DAILY [facility] Last Admin: 12/31/18 10:04 Dose: 40 mg Glimepiride (Amaryl) 2 mg PO DAILY [facility] Last Admin: 12/31/18 10:04 Dose: Not Given Home Med (Chlorzoxazone [Lorzone]) 750 mg PO DAILY [facility] Home Med (Lipase/Protease/Amylase [Creon Dr 36,000 Units Capsule]) 1 ecc PO DAILY [facility] Insulin Aspart (Novolog) 0 unit SC [facility]; Protocol Last Admin: 12/31/18 17:24 Dose: 2 units Morphine Sulfate (Morphine) 1 mg IVP Q4 PRN PRN Reason: Pain, severe (8-10) Last Admin: 12/29/18 19:58 Dose: 1 mg Rosuvastatin Calcium (Crestor) 5 mg PO [facility] Last Admin: 12/30/18 22:12 Dose: 5 mg - Labs Labs: 12/29/18 15:57 12/29/18 15:57 Assessment and Plan (1) Pneumonia Status: Acute (2) HTN (hypertension) Status: Acute (3) Diabetes Status: Acute (4) Oropharyngeal cancer Status: Acute
[2018-12-31] MEDS ORDERED: Azithromycin 500mg/250ML NS 500 MG/250 ML BAG IVPB SCH (20:00)
[2018-12-31] MEDS ORDERED: Azithromycin 500 MG in Sodium Chloride 0.9% 250 ML IVPB SCH (20:45)
[2019-01-01] MEDS: (Novolog) Insulin Aspart, Recombinant 100 u/ml 10 ml vial SC SCH ×2 (07:46→11:46)
[2019-01-01 08:23] LABS: BASO # 0.1 K/uL (0.0-0.2); BASO % 0.9 % (0.0-2.0); EOS # 0.4 K/uL (0.0-0.7); EOS % 4.6 % (0.0-4.0); HEMOGLOBIN 9.8 g/dL (12.0-18.0); LYMPH # 1.9 K/uL (1.0-4.3); LYMPH % 23.7 % (20.0-40.0); MEAN CORPUSCULAR HEMOGLOBIN 28.8 pg (27.0-31.0); MEAN CORPUSCULAR HGB CONC 33.9 g/dL (33.0-37.0); MEAN PLATELET VOLUME 8.2 fL (7.2-11.7); MONO # 0.7 K/uL (0.0-0.8); MONO % 9.3 % (0.0-10.0); NEUT # 4.8 K/uL (1.8-7.0); NEUT % 61.5 % (50.0-75.0); RBC 3.39 Mil/uL (4.40-5.90); RED CELL DISTRIBUTION WIDTH 17.3 % (11.5-14.5); WHITE BLOOD COUNT 7.8 K/uL (4.8-10.8)
[2019-01-01 08:28] LABS: CALCIUM 9.9 mg/dl (8.6-10.4)
[2019-01-01] MEDS: Enoxaparin 40 mg Syringe SC SCH (10:00)
--- NOTE | 2019-01-01 15:56 | CP.PCM.DIS ---
Provider - Provider Date of Admission: 12/29/18 16:24 Attending physician: Konstantin Anderson MD Diagnosis - Discharge Diagnosis (1) Pneumonia Status: Acute (2) HTN (hypertension) Status: Acute (3) Diabetes Status: Acute (4) Oropharyngeal cancer Status: Acute Hospital Course - Lab Results Lab Results: Micro Results 12/29/18 15:30 Blood Blood Culture - Preliminary NO GROWTH AFTER 48 HOURS 12/29/18 15:45 Blood Blood Culture - Preliminary NO GROWTH AFTER 48 HOURS Most Recent Lab Values WBC 7.8 K/uL (4.8-10.8) 01/01/19 08:09 RBC 3.39 Mil/uL (4.40-5.90) L 01/01/19 08:09 Hgb 9.8 g/dL (12.0-18.0) L 01/01/19 08:09 Hct 28.8 % (35.0-51.0) L 01/01/19 08:09 MCV 85.0 fL (80.0-94.0) 01/01/19 08:09 MCH 28.8 pg (27.0-31.0) 01/01/19 08:09 MCHC 33.9 g/dL (33.0-37.0) 01/01/19 08:09 RDW 17.3 % (11.5-14.5) H 01/01/19 08:09 Plt Count 249 K/uL (130-400) 01/01/19 08:09 MPV 8.2 fL (7.2-11.7) 01/01/19 08:09 Neut % (Auto) 61.5 % (50.0-75.0) 01/01/19 08:09 Lymph % (Auto) 23.7 % (20.0-40.0) 01/01/19 08:09 [place] % (Auto) 9.3 % (0.0-10.0) 01/01/19 08:09 Eos % (Auto) 4.6 % (0.0-4.0) H 01/01/19 08:09 Baso % (Auto) 0.9 % (0.0-2.0) 01/01/19 08:09 Neut # (Auto) 4.8 K/uL (1.8-7.0) 01/01/19 08:09 Lymph # (Auto) 1.9 K/uL (1.0-4.3) 01/01/19 08:09 [place] # (Auto) 0.7 K/uL (0.0-0.8) 01/01/19 08:09 Eos # (Auto) 0.4 K/uL (0.0-0.7) 01/01/19 08:09 Baso # (Auto) 0.1 K/uL (0.0-0.2) 01/01/19 08:09 Sodium 139 mmol/L (132-148) 01/01/19 08:09 Potassium 3.9 mmol/L (3.6-5.2) 01/01/19 08:09 Chloride 111 mmol/L (98-107) H 01/01/19 08:09 Carbon Dioxide 21 mmol/L (22-30) L 01/01/19 08:09 Anion Gap 11 (10-20) 01/01/19 08:09 BUN 26 mg/dL (9-20) H 01/01/19 08:09 Creatinine 1.6 mg/dL (0.8-1.5) H 01/01/19 08:09 Est GFR ( Amer) 57 01/01/19 08:09 Est GFR (Non-Af Amer) 47 01/01/19 08:09 POC Glucose (mg/dL) 179 mg/dL (65-110) H 01/01/19 11:01 Random Glucose 117 mg/dL (75-110) H 01/01/19 08:09 Calcium 9.9 mg/dl (8.6-10.4) 01/01/19 08:09 Total Bilirubin 0.4 mg/dL (0.2-1.3) 12/29/18 15:57 AST 33 U/L (17-59) 12/29/18 15:57 ALT 20 U/L (21-72) L 12/29/18 15:57 Alkaline Phosphatase 55 U/L (38-126) 12/29/18 15:57 Total Protein 8.6 g/dL (6.3-8.3) H 12/29/18 15:57 Albumin 4.2 g/dL (3.5-5.0) 12/29/18 15:57 Globulin 4.4 gm/dL (2.2-3.9) H 12/29/18 15:57 Albumin/Globulin Ratio 1.0 (1.0-2.1) 12/29/18 15:57 Discharge Exam - Head Exam Head Exam: NORMAL INSPECTION Discharge Plan - Discharge Medications Prescriptions: Amoxicillin/Clavulanate [Augmentin 250-62.5] 750 mg PO Q12 7 Days ml - Follow Up Plan Condition: STABLE Disposition: HOME/ ROUTINE Additional Instructions: Please f/u with Dr. Contreras office in 1 week Please continue augmentin x 7 days Please resume all home medications
[2019-01-01 16:39] VITALS: BP 106/70; PULSE 91; TEMP 98.1; O2SAT 99
== END 2019-01-01 16:51 | disposition home or self-care (01) ==
LOC: C.ER 13:46 → C.9E 16:24 → C.3T 17:03
PROVIDERS: ADMIT Internal Medicine Critical Care Medicine; ATTEND Internal Medicine Critical Care Medicine
DX: J18.9 Pneumonia, unspecified organism (principal); I10 Essential (primary) hypertension; E11.9 Type 2 diabetes mellitus without complications; C10.9 Malignant neoplasm of oropharynx, unspecified; D64.9 Anemia, unspecified; E78.00 Pure hypercholesterolemia, unspecified; Z79.4 Long term (current) use of insulin; Z79.899 Other long term (current) drug therapy
CPT/HCPCS: 36415; 71046; 80048; 80053; 82948; 85025; 87040; 93005; 96360; 96365; 99283; G0378; J0456; J0696; J1650; J2270; J7040